=== PATIENT | male | born 1955 ===

== ENCOUNTER 2019-01-23 10:38 | Inpatient (IN) | payer BC, OTHER, SELFPAY ==
[2019-01-23] MEDS ORDERED: Sodium Chloride 0.9% 1,000 ML IV ONE (10:41)
[2019-01-23] MEDS ORDERED: Ondansetron 4 MG/2 ML SDV IVPUSH ONE (10:41)
--- NOTE | 2019-01-23 10:45 | EDM.PDOC ---
ED HPI GENERAL MEDICAL PROBLEM - General Chief Complaint: General Stated Complaint: PT FELL AT HOME Time Seen by Provider: 01/23/19 10:39 Source of Information: Reports: Patient History Limitations: Reports: No Limitations - History of Present Illness INITIAL COMMENTS - FREE TEXT/NARRATIVE: HISTORY AND PHYSICAL: History of present illness: Patient is a 63-year-old male who presents to the emergency room after a fall at home. He states that he woke up this morning and had a sudden urge to have a bowel movement. He was ambulating with his walker when he fell to the ground. He states she does have generalized weakness and usually stays in bed (due to cancer diagnosis). He states he got into a hurry to get to the toilet so he " did not make a mess". He denies hitting his head or having any loss of consciousness. He denies any pain to his distal extremities, trunk or pelvis. Was not continent of urine or stool. When asked why he is here at the emergency room he states that he generally feels unwell and is nauseated. He appears anxious and states that both his oncologist and Dr Rosario are out of town. "Dr Rosario usually fixes me right up". 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 He has been prescribed oral medications for this but his oncologist is out of town for the week and Review of systems: As per history of present illness and below otherwise all systems reviewed and negative. Past medical history: As per history of present illness and as reviewed below otherwise noncontributory. Surgical history: As per history of present illness and as reviewed below otherwise noncontributory. Social history: See social history for further information Family history: As per history of present illness and as reviewed below otherwise noncontributory. Physical exam: General: Well-developed and well-nourished 63-year-old male. Alert and oriented. Nontoxic appearing and in no acute distress. Patient does appear emotional as he is talking about his current diagnoses along with some home stressors that have recently arise. HEENT: Atraumatic, normocephalic, pupils equal and reactive bilaterally, negative for conjunctival pallor or scleral icterus, mucous membranes moist, TMs normal bilaterally, throat clear, neck supple, nontender, trachea midline. No drooling or trismus noted. No meningeal signs. No hot potato voice noted. Lungs: Clear to auscultation, breath sounds equal bilaterally, chest nontender. Heart: S1S2, regular rate and rhythm without overt murmur Abdomen: Soft, nondistended, nontender. Negative for masses or hepatosplenomegaly. Negative for costovertebral tenderness. Pelvis is stable and nontender. Skin: Intact, warm, dry. No lesions or rashes noted. Extremities: Atraumatic, moves all extremities per self without difficulty or deficits, negative for cords or calf pain. Neurovascular unremarkable. Neuro: Awake, alert, oriented. Cranial nerves II through XII unremarkable. Cerebellum unremarkable. Motor and sensory unremarkable throughout. Exam nonfocal. Notes: I'm unable to find any recent physician notes discussing this patient's care. He did have an MRI of the brain on 12/17/18. The MRI shows radiographic worsening of patchy foci of T2 prolongation involving the sylvia, superior cerebellar peduncles and middle cerebellar peduncles, right and left posteriolateral medulla, and right cerebral peduncle. Lack of significant response to corticosteroids argues against CLIPPERS. Today's EKG shows a sinus rhythm with RBBB with rate of 85. No recent EKG's for comparison. Lab work shows no acute findings. Chest x-ray and head CT showed no acute findings as well. Patient is not a good historian. We did discuss admission versus discharge to home. He states that his recently had left him and he is taking care of himself. He does not feel safe going home as he is afraid he is given a fall again. Does mention that his had set up possible home care for Friday, although he is uncertain if they were going to come to his house or if they were just talking about setting up home care. Patient's vital signs remained stable. Dr. Flower was consulted on this case and is agreeable to keeping him for observation. Diagnostics: CBC, CMP, INR, Head CT, CXR Therapeutics: IV fluids, Zofran Prescription: None Impression: Frequent Falls Generalized Weakness History of cancer Plan: Observation admission to [facility] Definitive disposition and diagnosis as appropriate pending reevaluation and review of above. - Related Data Allergies Allergy/AdvReac Type Severity Reaction Status Date / Time No Known Allergies Allergy Verified 01/23/19 10:41 Home Meds: Home Meds Lisinopril 2.5 mg PO DAILY 01/23/19 [History] Metoprolol Tartrate 25 mg PO BID 01/23/19 [History] Naltrexone HCl [Revia] 10 mg PO DAILY 01/23/19 [History] Nitroglycerin 0.4 mg PO ASDIRECTED PRN 01/23/19 [History] Omeprazole 20 mg PO ACBREAKFAST 01/23/19 [History] Sertraline HCl 50 mg PO DAILY 01/23/19 [History] Warfarin [Coumadin] 4 mg PO DAILY 01/23/19 [History] atorvaSTATin [Lipitor] 20 mg PO BEDTIME 01/23/19 [History] carBAMazepine [Carbamazepine] 200 mg PO BID 01/23/19 [History] predniSONE [Prednisone] 30 mg PO DAILY 01/23/19 [History] Past Medical History - Past Health History Medical/Surgical History: Denies Medical/Surgical History ED ROS GENERAL - Review of Systems Review Of Systems: ROS reveals no pertinent complaints other than HPI. ED EXAM, GENERAL - Physical Exam Exam: See Below (See dictation) Course - Vital Signs Last Recorded V/S: Last Vital Signs Temp 98.2 F 01/23/19 10:41 Pulse 87 01/23/19 11:22 Resp 18 01/23/19 11:22 BP 154/90 H 01/23/19 11:22 Pulse Ox 98 01/23/19 11:22 - Orders/Labs/Meds Orders: Active Orders 24 hr Category Date Time Status Admission Status [Patient Status] [ADT] Stat ADT 01/23/19 12:15 Ordered EKG Documentation Completion [RC] STAT Care 01/23/19 10:40 Active Sodium Chloride 0.9% [Normal Saline] 1,000 ml Med 01/23/19 10:41 Active IV STAT Medication Orders Sodium Chloride (Normal Saline) 1,000 mls @ 100 mls/hr IV STAT ONE Stop: 01/23/19 20:40 Last Admin: 01/23/19 11:24 Dose: 100 mls/hr Labs: Laboratory Tests 01/23/19 01/23/19 01/23/19 Range/Units 11:21 11:21 11:21 WBC 8.20 (4.0-11.0) K/uL RBC 6.11 H (4.50-5.90) M/uL Hgb 15.9 (13.0-17.0) g/dL Hct 46.4 (38.0-50.0) % MCV 75.9 L (80.0-98.0) fL MCH 26.0 L (27.0-32.0) pg MCHC 34.3 (31.0-37.0) g/dL RDW Std Deviation 41.5 (28.0-62.0) fl RDW Coeff of Vicki 15 (11.0-15.0) % Plt Count 168 (150-400) K/uL MPV 9.00 (7.40-12.00) fL Add Manual Diff YES Neutrophils % (Manual) 65 (48.0-80.0) % Lymphocytes % (Manual) 17 (16.0-40.0) % Monocytes % (Manual) 16 H (0.0-15.0) % Eosinophils % (Manual) 1 (0.0-7.0) % Basophils % (Manual) 1 (0.0-1.5) % Nucleated RBC % 0.0 /100WBC Absolute Seg Neuts 5.3 (1.4-5.7) Lymphocytes # (Manual) 1.4 (0.6-2.4) Monocytes # (Manual) 1.3 H (0.0-0.8) Eosinophils # (Manual) 0.1 (0.0-0.7) Basophils # (Manual) 0.1 (0.0-0.1) Nucleated RBCs # 0 K/uL INR 1.16 Sodium 142 (136-148) mmol/L Potassium 3.3 L (3.5-5.1) mmol/L Chloride 109 H (98-107) mmol/L Carbon Dioxide 21.6 (21.0-32.0) mmol/L BUN 5 L (7.0-18.0) mg/dL Creatinine 1.0 (0.8-1.3) mg/dL Est Cr Clr Drug Dosing 80.10 mL/min Estimated GFR (MDRD) > 60.0 ml/min Glucose 111 H (74-106) mg/dL Calcium 8.1 L (8.5-10.1) mg/dL Total Bilirubin 1.4 H (0.2-1.0) mg/dL AST 20 (15-37) IU/L ALT 21 (14-63) IU/L Alkaline Phosphatase 142 H (46-116) U/L Total Protein 5.6 L (6.4-8.2) g/dL Albumin 2.5 L (3.4-5.0) g/dL Globulin 3.1 (2.6-4.0) g/dL Albumin/Globulin Ratio 0.8 L (0.9-1.6) Meds: Medications Generic Name Dose Route Start Last Admin Trade Name Freq PRN Reason Stop Dose Admin Sodium Chloride 1,000 mls @ 100 mls/hr 01/23/19 10:41 01/23/19 11:24 Normal Saline IV 01/23/19 20:40 100 mls/hr STAT ONE Administration Discontinued Medications Generic Name Dose Route Start Last Admin Trade Name Freq PRN Reason Stop Dose Admin Ondansetron HCl 4 mg 01/23/19 10:41 01/23/19 11:24 Zofran IVPUSH 01/23/19 10:42 4 mg ONETIME ONE Administration Departure - Departure Time of Disposition: 12:18 Disposition: Refer to Observation Clinical Impression: Frequent falls, History of cancer, Generalized weakness - Discharge Information Referrals: PCP,None [Primary Care Provider] - Forms: ED Department Discharge - My Orders Last 24 Hours: My Active Orders 01/23/19 10:40 EKG Documentation Completion [RC] STAT 01/23/19 10:41 Sodium Chloride 0.9% [Normal Saline] 1,000 ml IV STAT 01/23/19 12:15 Admission Status [Patient Status] [ADT] Stat - Assessment/Plan Last 24 Hours: My Active Orders 01/23/19 10:40 EKG Documentation Completion [RC] STAT 01/23/19 10:41 Sodium Chloride 0.9% [Normal Saline] 1,000 ml IV STAT 01/23/19 12:15 Admission Status [Patient Status] [ADT] Stat
[2019-01-23 11:47] LABS: BLOOD UREA NITROGEN,BUN 5 mg/dL (7.0-18.0); CARBON DIOXIDE,CO2 21.6 mmol/L (21.0-32.0); CHLORIDE,CL 109 mmol/L (98-107); GLUCOSE RANDOM 111 mg/dL (74-106); POTASSIUM,K 3.3 mmol/L (3.5-5.1); SODIUM,NA 142 mmol/L (136-148)
--- NOTE | 2019-01-23 11:53 | CT ---
INDICATION: Fall COMPARISON: none TECHNIQUE: A CT volumetric acquisition was performed of the brain without IV contrast. Please note that all CT scans at this facility use dose modulation, iterative reconstruction, and/or weight-based dosing when appropriate to reduce radiation dose to as low as reasonably achievable. FINDINGS: No intracranial hemorrhage, mass or mass effect. No midline shift or hydrocephalus. No extra-axial fluid collection. No fracture. Mucoperiosteal thickening within the left maxillary sinus. IMPRESSION: No acute intracranial pathology. Please note that all CT scans at this facility use dose modulation, iterative reconstruction, and/or weight-based dosing when appropriate to reduce radiation dose to as low as reasonably achievable. Dictated by Eliel Dobbs MD @ Jan 23 2019 11:49AM Signed by Dr. Eliel Dobbs @ Jan 23 2019 11:51AM
--- NOTE | 2019-01-23 12:00 | CR ---
INDICATION: FALL COMPARISON: 06/15/2018. FINDINGS: Single portable AP view of the chest demonstrates adequate inflation of the lungs. No focal airspace consolidation, pneumothorax or effusion. Cardiomediastinal silhouette is unremarkable for an AP view. Postsurgical changes from median sternotomy. No acute osseous findings identified. IMPRESSION: Negative AP view of the chest. No acute findings identified. Dictated by Shant Cook MD @ 01/23/2019 11:58:48 AM Dictated by: Shant Cook MD @ 01/23/2019 11:59:02 (Electronically Signed)
[2019-01-23] MEDS ORDERED: Sodium Chloride 0.9% 1,000 ML IV SCH (13:45)
--- NOTE | 2019-01-23 15:22 | PCM.HP ---
H&P History of Present Illness - General Date of Service: 01/23/19 Admit Problem/Dx: Admission Diagnosis/Problem Admission Diagnosis/Problem Weakness Source of Information: Patient, Old Records History Limitations: Reports: No Limitations - History of Present Illness Initial Comments - Free Text/Narative: The patient is a 63-year-old gentleman who presented to the emergency department the evening of weakness, dizziness and lightheadedness and gait instability. The patient reports that he has had the symptoms since at least March 2018. Further, the patient says that he has been recently treated in [facility] for "blood cancer that inflames my brain" although records are currently not available. The patient says that he is also been falling at home and did so today. He doesn't recall injuring himself. The patient also said that his and children have left him and he has been unemployed since March. The patient says that he is also frustrated that he was supposed to have medications sent to him and this has not happened yet. The patient also has expressed despondency with suicidal ideation at his current situation. There was no plan expressed at this time. Also, the patient is somewhat of a poor historian with regards to his health. Onset of Symptoms: Reports: Gradual Duration of Symptoms: Reports: Chronic Location: Reports: Generalized Severity: Moderate Improves with: Reports: None Worsens with: Reports: None Associated Symptoms: Reports: Confusion - Related Data Allergies/Adverse Reactions: Allergies Allergy/AdvReac Type Severity Reaction Status Date / Time No Known Allergies Allergy Verified 01/23/19 16:10 Home Medications: Home Meds Lisinopril 2.5 mg PO DAILY 01/23/19 [History] Metoprolol Tartrate 25 mg PO BID 01/23/19 [History] Naltrexone HCl [Revia] 10 mg PO DAILY 01/23/19 [History] Nitroglycerin 0.4 mg PO ASDIRECTED PRN 01/23/19 [History] Omeprazole 20 mg PO ACBREAKFAST 01/23/19 [History] Sertraline HCl 50 mg PO DAILY 01/23/19 [History] Warfarin [Coumadin] 4 mg PO DAILY 01/23/19 [History] atorvaSTATin [Lipitor] 20 mg PO BEDTIME 01/23/19 [History] carBAMazepine [Carbamazepine] 200 mg PO BID 01/23/19 [History] predniSONE [Prednisone] 30 mg PO DAILY 01/23/19 [History] Past Medical History - Past Health History Medical/Surgical History: Denies Medical/Surgical History HEENT History: Reports: Hard of Hearing Cardiovascular History: Reports: IA Respiratory History: Reports: None Gastrointestinal History: Reports: None Genitourinary History: Reports: None Musculoskeletal History: Reports: Other (See Below) Other Musculoskeletal History: "broken hip" Neurological History: Reports: Other (See Below) Psychiatric History: Reports: Suicidal Ideation Endocrine/Metabolic History: Reports: None Hematologic History: Reports: Other (See Below) Other Hematologic History: "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" Immunologic History: Reports: None Other Oncologic History: 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." Dermatologic History: Reports: None - Infectious Disease History Infectious Disease History: Reports: Chicken Pox, Measles, Mumps - Past Surgical History Other Musculoskeletal Surgeries/Procedures:: "put three screws in hip" Social & Family History - Family History Family Medical History: Noncontributory - Tobacco Use Smoking Status *Q: Former Smoker Used Tobacco, but Quit: Yes Month/Year Tobacco Last Used: 06/2014 - Caffeine Use Caffeine Use: Reports: Coffee, Soda - Alcohol Use Alcohol Use History: No - Recreational Drug Use Recreational Drug Use: Yes Drug Use in Last 12 Months: Yes Recreational Drug Type: Reports: Marijuana/Hashish Recreational Drug Use Frequency: Rarely - Living Situation & Occupation Living situation: Reports: , Alone Occupation: Unemployed H&P Review of Systems - Review of Systems: Review Of Systems: See Below General: Reports: Malaise, Weakness, Decreased Appetite, Weight Loss HEENT: Reports: Hearing Changes, Visual Changes Pulmonary: Reports: No Symptoms Cardiovascular: Reports: No Symptoms Gastrointestinal: Reports: No Symptoms Genitourinary: Reports: No Symptoms Musculoskeletal: Reports: No Symptoms Skin: Reports: No Symptoms Psychiatric: Reports: Depression, Mood Lability, Suicidal Ideation Neurological: Reports: No Symptoms Hematologic/Lymphatic: Reports: No Symptoms Immunologic: Reports: No Symptoms Exam - Exam Exam: See Below - Vital Signs Vital Signs: Last Vital Signs Temp 36.1 C 01/23/19 13:30 Pulse 71 01/23/19 13:30 Resp 18 01/23/19 13:30 BP 147/70 H 01/23/19 13:30 Pulse Ox 97 01/23/19 13:30 Weight: 91 kg - Exam Quality Assessment: No: Supplemental Oxygen General: Alert, Oriented, Cooperative, Mild Distress HEENT: Conjunctiva Clear, EACs Clear, EOMI, Mucosa Moist & Welch, Pupils Equal, PERRLA Neck: Supple, Trachea Midline Lungs: Clear to Auscultation, Normal Respiratory Effort Cardiovascular: Regular Rate, Regular Rhythm GI/Abdominal Exam: Normal Bowel Sounds, Soft, No Distention Back Exam: Normal Inspection, Full Range of Motion Extremities: Normal Inspection, No Pedal Edema Neurological: Cranial Nerves Intact, Strength Equal Bilateral (Decreased). No: Normal Gait Psychiatric: Alert, Labile Mood, Depressed, Suicidal Ideation - Patient Data Lab Results Last 24 hrs: Laboratory Results - last 24 hr 01/23/19 01/23/19 01/23/19 Range/Units 11:21 11:21 11:21 WBC 8.20 (4.0-11.0) K/uL RBC 6.11 H (4.50-5.90) M/uL Hgb 15.9 (13.0-17.0) g/dL Hct 46.4 (38.0-50.0) % MCV 75.9 L (80.0-98.0) fL MCH 26.0 L (27.0-32.0) pg MCHC 34.3 (31.0-37.0) g/dL RDW Std Deviation 41.5 (28.0-62.0) fl RDW Coeff of Vicki 15 (11.0-15.0) % Plt Count 168 (150-400) K/uL MPV 9.00 (7.40-12.00) fL Add Manual Diff YES Neutrophils % (Manual) 65 (48.0-80.0) % Lymphocytes % (Manual) 17 (16.0-40.0) % Monocytes % (Manual) 16 H (0.0-15.0) % Eosinophils % (Manual) 1 (0.0-7.0) % Basophils % (Manual) 1 (0.0-1.5) % Nucleated RBC % 0.0 /100WBC Absolute Seg Neuts 5.3 (1.4-5.7) Lymphocytes # (Manual) 1.4 (0.6-2.4) Monocytes # (Manual) 1.3 H (0.0-0.8) Eosinophils # (Manual) 0.1 (0.0-0.7) Basophils # (Manual) 0.1 (0.0-0.1) Nucleated RBCs # 0 K/uL INR 1.16 Sodium 142 (136-148) mmol/L Potassium 3.3 L (3.5-5.1) mmol/L Chloride 109 H (98-107) mmol/L Carbon Dioxide 21.6 (21.0-32.0) mmol/L BUN 5 L (7.0-18.0) mg/dL Creatinine 1.0 (0.8-1.3) mg/dL Est Cr Clr Drug Dosing 80.10 mL/min Estimated GFR (MDRD) > 60.0 ml/min Glucose 111 H (74-106) mg/dL Calcium 8.1 L (8.5-10.1) mg/dL Total Bilirubin 1.4 H (0.2-1.0) mg/dL AST 20 (15-37) IU/L ALT 21 (14-63) IU/L Alkaline Phosphatase 142 H (46-116) U/L Total Protein 5.6 L (6.4-8.2) g/dL Albumin 2.5 L (3.4-5.0) g/dL Globulin 3.1 (2.6-4.0) g/dL Albumin/Globulin Ratio 0.8 L (0.9-1.6) Result Diagrams: 01/23/19 11:21 01/23/19 11:21 - Problem List (1) Encephalopathy SNOMED Code(s): 03531306 ICD Code: G93.40 - ENCEPHALOPATHY, UNSPECIFIED Status: Chronic Priority: High Current Visit: Yes (2) Suicidal ideation SNOMED Code(s): 7226024 ICD Code: R45.851 - SUICIDAL IDEATIONS Status: Acute Priority: High Current Visit: Yes (3) Emotional lability SNOMED Code(s): 03797861 ICD Code: R45.86 - EMOTIONAL LABILITY Status: Chronic Priority: High Current Visit: Yes (4) Gait disturbance SNOMED Code(s): 29502430 ICD Code: R26.9 - UNSPECIFIED ABNORMALITIES OF GAIT AND MOBILITY Status: Chronic Priority: High Current Visit: Yes (5) Frequent falls SNOMED Code(s): 149838680 ICD Code: R29.6 - REPEATED FALLS Status: Chronic Priority: High Current Visit: Yes (6) History of cancer SNOMED Code(s): 665776646 ICD Code: Z85.9 - PERSONAL HISTORY OF MALIGNANT NEOPLASM, UNSPECIFIED Status: Chronic Priority: Medium Current Visit: Yes Problem List Initiated/Reviewed/Updated: Yes Orders Last 24hrs: Active Orders 24 hr Category Date Time Status Admission Status [Patient Status] [ADT] Stat ADT 01/23/19 12:15 Active EKG Documentation Completion [RC] STAT Care 01/23/19 10:40 Active Regular Diet [DIET] Diet 01/23/19 Lunch Active Sodium Chloride 0.9% [Normal Saline] 1,000 ml Med 01/23/19 13:45 Active IV ASDIRECTED Sodium Chloride 0.9% [Normal Saline] 1,000 ml Med 01/23/19 10:41 Active IV STAT Medication Orders Sodium Chloride (Normal Saline) 1,000 mls @ 100 mls/hr IV STAT ONE Stop: 01/23/19 20:40 Last Admin: 01/23/19 11:24 Dose: 100 mls/hr Sodium Chloride (Normal Saline) 1,000 mls @ 75 mls/hr IV ASDIRECTED JUAN Last Admin: 01/23/19 14:07 Dose: 75 mls/hr Assessment/Plan Comment:: The patient is a 63-year-old gentleman who had presented to the emergency department primarily out of concern for falling. 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 Medical records have been requested from [facility] in order to help provide this patient with appropriate treatment. The patient has been taking warfarin and I've ordered repeated INR is. I've also ordered other laboratory studies. I'm concerned that the patient has had mood lability and this is similar pseudobulbar affect. The patient also had expressed suicidal ideation secondary to his current health situation as well as his family situation. I've requested consult with psychiatrist with regards to this. The patient will be kept on a regular diet as tolerated. I placed the patient on Ativan for agitation. The patient is on warfarin and therefore pharmacological prophylaxis will not be needed and he is a fall risk so I have ordered anti- embolic stockings for him. The patient's home medication has been continued.
[2019-01-23] MEDS ORDERED: oxyCODONE 5 MG Tab PO PRN (16:04)
[2019-01-23] MEDS ORDERED: Acetaminophen 325 MG Tab PO PRN (16:04)
[2019-01-23] MEDS ORDERED: Temazepam 15 MG Cap PO PRN (16:04)
[2019-01-23] MEDS: Sodium Chloride 0.9% 1,000 ML IV SCH (19:15)
[2019-01-23] MEDS: Metoprolol Tartrate 25 MG Tab PO SCH (20:33)
[2019-01-23] MEDS: carBAMazepine 200 MG Tab PO SCH (20:33)
[2019-01-23] MEDS: atorvaSTATin 20 MG Tab PO SCH (20:34)
[2019-01-23] MEDS: LORazepam 1 MG Tab PO PRN (20:45)
[2019-01-24] MEDS: Sodium Chloride 0.9% 1,000 ML IV SCH (03:53)
[2019-01-24 07:10] LABS: BLOOD UREA NITROGEN,BUN 6 mg/dL (7.0-18.0); CHLORIDE,CL 112 mmol/L (98-107); GLUCOSE RANDOM 96 mg/dL (74-106); POTASSIUM,K 3.1 mmol/L (3.5-5.1); SODIUM,NA 143 mmol/L (136-148)
[2019-01-24] MEDS ORDERED: Omeprazole 20 MG Cap.CR PO SCH (07:30)
[2019-01-24] MEDS: Metoprolol Tartrate 25 MG Tab PO SCH ×2 (08:05→20:13)
[2019-01-24] MEDS: Sertraline 50 MG Tab PO SCH (08:06)
[2019-01-24] MEDS: carBAMazepine 200 MG Tab PO SCH ×2 (08:06→20:13)
[2019-01-24] MEDS: Lisinopril 5 MG Tab PO SCH (08:07)
[2019-01-24] MEDS ORDERED: NALTREXONE HCL PO SCH (09:00)
--- NOTE | 2019-01-24 11:28 | PCM.DCSUM1 ---
Discharge Summary - Discharge Data Condition: Stable - Discharge Diagnosis/Problem(s) (1) Encephalopathy SNOMED Code(s): 89220635 ICD Code: G93.40 - ENCEPHALOPATHY, UNSPECIFIED Status: Chronic Priority: High Current Visit: Yes (2) Suicidal ideation SNOMED Code(s): 9105576 ICD Code: R45.851 - SUICIDAL IDEATIONS Status: Acute Priority: High Current Visit: Yes (3) Emotional lability SNOMED Code(s): 46137726 ICD Code: R45.86 - EMOTIONAL LABILITY Status: Chronic Priority: High Current Visit: Yes (4) Gait disturbance SNOMED Code(s): 37980451 ICD Code: R26.9 - UNSPECIFIED ABNORMALITIES OF GAIT AND MOBILITY Status: Chronic Priority: High Current Visit: Yes (5) Frequent falls SNOMED Code(s): 772614833 ICD Code: R29.6 - REPEATED FALLS Status: Chronic Priority: High Current Visit: Yes (6) History of cancer SNOMED Code(s): 973510202 ICD Code: Z85.9 - PERSONAL HISTORY OF MALIGNANT NEOPLASM, UNSPECIFIED Status: Chronic Priority: Medium Current Visit: Yes - Patient Summary/Data Consults: Consultations 01/23/19 16:04 Consult to Physician [CONS] Routine OT Evaluation and Treatment [CONS] Routine PT Evaluation and Treatment [CONS] Routine - Discharge Plan Home Medications: Home Meds Lisinopril 2.5 mg PO DAILY 01/23/19 [History] Metoprolol Tartrate 25 mg PO BID 01/23/19 [History] Nitroglycerin 0.4 mg PO ASDIRECTED PRN 01/23/19 [History] Sertraline HCl 50 mg PO DAILY 01/23/19 [History] Warfarin [Coumadin] 8 mg PO MOWEFR@209901/23/19 [History] atorvaSTATin [Lipitor] 20 mg PO BEDTIME 01/23/19 [History] carBAMazepine [Carbamazepine] 200 mg PO BID 01/23/19 [History] Aspirin [Halfprin] 81 mg PO DAILY 01/24/19 [History] Omeprazole 20 mg PO DAILY 01/24/19 [History] Warfarin [Coumadin] 6 mg PO SUTUTHSA@209901/24/19 [History] predniSONE [Prednisone] 50 mg PO DAILY 01/24/19 [History] Referrals: Db Rosario MD [Physician] - - Patient Data Vitals - Most Recent: Last Vital Signs Temp 36.1 C 01/24/19 07:59 Pulse 88 01/24/19 08:05 Resp 18 01/24/19 07:59 BP 134/79 01/24/19 08:07 Pulse Ox 100 01/24/19 07:59 Weight - Most Recent: 91 kg I&O - Last 24 hours: Intake & Output 01/23/19 01/24/19 01/24/19 22:59 06:59 14:59 Intake Total 600 2474 200 Balance 600 2474 200 Lab Results - Last 24 hrs: Laboratory Results - last 24 hr 01/23/19 01/23/19 01/23/19 Range/Units 11:21 11:21 11:21 WBC 8.20 (4.0-11.0) K/uL RBC 6.11 H (4.50-5.90) M/uL Hgb 15.9 (13.0-17.0) g/dL Hct 46.4 (38.0-50.0) % MCV 75.9 L (80.0-98.0) fL MCH 26.0 L (27.0-32.0) pg MCHC 34.3 (31.0-37.0) g/dL RDW Std Deviation 41.5 (28.0-62.0) fl RDW Coeff of Vicki 15 (11.0-15.0) % Plt Count 168 (150-400) K/uL MPV 9.00 (7.40-12.00) fL Add Manual Diff YES Neutrophils % (Manual) 65 (48.0-80.0) % Band Neutrophils % % Lymphocytes % (Manual) 17 (16.0-40.0) % Monocytes % (Manual) 16 H (0.0-15.0) % Eosinophils % (Manual) 1 (0.0-7.0) % Basophils % (Manual) 1 (0.0-1.5) % Nucleated RBC % 0.0 /100WBC Absolute Seg Neuts 5.3 (1.4-5.7) Band Neutrophils # Lymphocytes # (Manual) 1.4 (0.6-2.4) Monocytes # (Manual) 1.3 H (0.0-0.8) Eosinophils # (Manual) 0.1 (0.0-0.7) Basophils # (Manual) 0.1 (0.0-0.1) Nucleated RBCs # 0 K/uL INR 1.16 Sodium 142 (136-148) mmol/L Potassium 3.3 L (3.5-5.1) mmol/L Chloride 109 H (98-107) mmol/L Carbon Dioxide 21.6 (21.0-32.0) mmol/L BUN 5 L (7.0-18.0) mg/dL Creatinine 1.0 (0.8-1.3) mg/dL Est Cr Clr Drug Dosing 80.10 mL/min Estimated GFR (MDRD) > 60.0 ml/min Glucose 111 H (74-106) mg/dL Calcium 8.1 L (8.5-10.1) mg/dL Total Bilirubin 1.4 H (0.2-1.0) mg/dL AST 20 (15-37) IU/L ALT 21 (14-63) IU/L Alkaline Phosphatase 142 H (46-116) U/L Total Protein 5.6 L (6.4-8.2) g/dL Albumin 2.5 L (3.4-5.0) g/dL Globulin 3.1 (2.6-4.0) g/dL Albumin/Globulin Ratio 0.8 L (0.9-1.6) 01/24/19 01/24/19 01/24/19 Range/Units 06:38 06:38 06:38 WBC 7.59 (4.0-11.0) K/uL RBC 5.27 (4.50-5.90) M/uL Hgb 13.7 (13.0-17.0) g/dL Hct 39.9 (38.0-50.0) % MCV 75.7 L (80.0-98.0) fL MCH 26.0 L (27.0-32.0) pg MCHC 34.3 (31.0-37.0) g/dL RDW Std Deviation 41.5 (28.0-62.0) fl RDW Coeff of Vicki 15 (11.0-15.0) % Plt Count 146 L (150-400) K/uL MPV 8.90 (7.40-12.00) fL Add Manual Diff YES Neutrophils % (Manual) 54 (48.0-80.0) % Band Neutrophils % 3 % Lymphocytes % (Manual) 26 (16.0-40.0) % Monocytes % (Manual) 14 (0.0-15.0) % Eosinophils % (Manual) 2 (0.0-7.0) % Basophils % (Manual) 1 (0.0-1.5) % Nucleated RBC % 0.0 /100WBC Absolute Seg Neuts 4.1 (1.4-5.7) Band Neutrophils # 0.2 Lymphocytes # (Manual) 2.0 (0.6-2.4) Monocytes # (Manual) 1.1 H (0.0-0.8) Eosinophils # (Manual) 0.2 (0.0-0.7) Basophils # (Manual) 0.1 (0.0-0.1) Nucleated RBCs # 0 K/uL INR 1.25 Sodium 143 (136-148) mmol/L Potassium 3.1 L (3.5-5.1) mmol/L Chloride 112 H (98-107) mmol/L Carbon Dioxide 20.0 L (21.0-32.0) mmol/L BUN 6 L (7.0-18.0) mg/dL Creatinine 0.9 (0.8-1.3) mg/dL Est Cr Clr Drug Dosing 89.00 mL/min Estimated GFR (MDRD) > 60.0 ml/min Glucose 96 (74-106) mg/dL Calcium 7.3 L (8.5-10.1) mg/dL Total Bilirubin 1.1 H (0.2-1.0) mg/dL AST 16 (15-37) IU/L ALT 15 (14-63) IU/L Alkaline Phosphatase 110 (46-116) U/L Total Protein 4.3 L (6.4-8.2) g/dL Albumin 2.0 L (3.4-5.0) g/dL Globulin 2.3 L (2.6-4.0) g/dL Albumin/Globulin Ratio 0.9 (0.9-1.6) SWETHA Results - Last 24 hrs: Microbiology 01/24/19 08:00 Clostridium difficile Toxin A & B - Final Stool / Feces Negative for C.Diff Toxin/AG REFERENCE RANGE: NEGATIVE 01/24/19 08:00 Stool for WBCs - Final Stool / Feces NEGATIVE FOR WBC'S 01/24/19 08:00 Campylobacter Antigen Assay - Final Stool / Feces NEGATIVE CAMPYLOBACTER AG REFERENCE RANGE: NEGATIVE Med Orders - Current: Current Medications Acetaminophen (Tylenol) 650 mg PO Q4H PRN PRN Reason: Pain (Mild 1-3)/fever Atorvastatin Calcium (Lipitor) 20 mg PO BEDTIME [facility] Last Admin: 01/23/19 20:34 Dose: 20 mg Carbamazepine (Tegretol Tab) 200 mg PO BID [facility] Last Admin: 01/24/19 08:06 Dose: 200 mg Sodium Chloride (Normal Saline) 1,000 mls @ 100 mls/hr IV ASDIRECTED [facility] Last Admin: 01/24/19 03:53 Dose: 100 mls/hr Lisinopril (Prinivil) 2.5 mg PO DAILY [facility] Last Admin: 01/24/19 08:07 Dose: 2.5 mg Lorazepam (Ativan) 1 mg PO Q6H PRN PRN Reason: Agitation Last Admin: 01/23/19 20:45 Dose: 1 mg Metoprolol Tartrate (Lopressor) 25 mg PO BID [facility] Last Admin: 01/24/19 08:05 Dose: 25 mg Oxycodone HCl (Oxycodone) 5 mg PO Q4H PRN PRN Reason: Pain (moderate 4-6) Sertraline HCl (Zoloft) 50 mg PO DAILY [facility] Last Admin: 01/24/19 08:06 Dose: 50 mg Temazepam (Restoril) 15 mg PO BEDTIME PRN PRN Reason: Sleep Warfarin Sodium (Coumadin) 4 mg PO DAILY@1400 [facility] Discontinued Medications Sodium Chloride (Normal Saline) 1,000 mls @ 100 mls/hr IV STAT ONE Stop: 01/23/19 20:40 Last Admin: 01/23/19 11:24 Dose: 100 mls/hr Sodium Chloride (Normal Saline) 1,000 mls @ 75 mls/hr IV ASDIRECTED [facility] Last Infusion: 01/23/19 16:32 Dose: 100 mls/hr Non-Formulary Medication (Naltrexone Hcl) 10 mg PO DAILY [facility] Omeprazole (Omeprazole) 20 mg PO ACBREAKFAST [facility] Ondansetron HCl (Zofran) 4 mg IVPUSH ONETIME ONE Stop: 01/23/19 10:42 Last Admin: 01/23/19 11:24 Dose: 4 mg *Q Meaningful Use (DIS) - VTE *Q VTE Mechanical Contraindications *Q: At Risk for Falls VTE Pharmacological Contraindications *Q: Risk of Bleeding
[2019-01-24] MEDS ORDERED: Warfarin 2 MG Tab PO SCH (14:00)
[2019-01-24] MEDS ORDERED: LORazepam 1 MG Tab PO ONE (14:27)
--- NOTE | 2019-01-24 14:27 | PCM.PN ---
- General Info Date of Service: 01/24/19 Admission Dx/Problem (Free Text): Admission Diagnosis/Problem Admission Diagnosis/Problem Weakness, frequent falls, gait disturbance, suicidal ideation Subjective Update: The patient is a 63-year-old gentleman who had presented to the emergency department complaining of weakness, dizziness and lightheadedness. The patient was admitted and evaluated. The patient yesterday evening was having episodes of aggressive behavior with nursing staff and had admitted to being suicidal previously. Functional Status: Reports: Pain Controlled - Review of Systems General: Reports: No Symptoms HEENT: Reports: No Symptoms Pulmonary: Reports: No Symptoms Cardiovascular: Reports: No Symptoms Gastrointestinal: Reports: No Symptoms Genitourinary: Reports: No Symptoms Musculoskeletal: Reports: No Symptoms Skin: Reports: No Symptoms Neurological: Reports: Dizziness, Weakness Psychiatric: Reports: Depression, Mood Lability, Suicidal Ideation - Patient Data Vitals - Most Recent: Last Vital Signs Temp 36.2 C 01/24/19 12:00 Pulse 88 01/24/19 12:00 Resp 16 01/24/19 12:00 BP 139/83 01/24/19 12:00 Pulse Ox 99 01/24/19 13:43 Weight - Most Recent: 91 kg I&O - Last 24 Hours: Intake & Output 01/23/19 01/24/19 01/24/19 22:59 06:59 14:59 Intake Total 600 2474 1096 Balance 600 2474 1096 Lab Results Last 24 Hours: Laboratory Results - last 24 hr 01/24/19 01/24/19 01/24/19 Range/Units 06:38 06:38 06:38 WBC 7.59 (4.0-11.0) K/uL RBC 5.27 (4.50-5.90) M/uL Hgb 13.7 (13.0-17.0) g/dL Hct 39.9 (38.0-50.0) % MCV 75.7 L (80.0-98.0) fL MCH 26.0 L (27.0-32.0) pg MCHC 34.3 (31.0-37.0) g/dL RDW Std Deviation 41.5 (28.0-62.0) fl RDW Coeff of Vicki 15 (11.0-15.0) % Plt Count 146 L (150-400) K/uL MPV 8.90 (7.40-12.00) fL Add Manual Diff YES Neutrophils % (Manual) 54 (48.0-80.0) % Band Neutrophils % 3 % Lymphocytes % (Manual) 26 (16.0-40.0) % Monocytes % (Manual) 14 (0.0-15.0) % Eosinophils % (Manual) 2 (0.0-7.0) % Basophils % (Manual) 1 (0.0-1.5) % Nucleated RBC % 0.0 /100WBC Absolute Seg Neuts 4.1 (1.4-5.7) Band Neutrophils # 0.2 Lymphocytes # (Manual) 2.0 (0.6-2.4) Monocytes # (Manual) 1.1 H (0.0-0.8) Eosinophils # (Manual) 0.2 (0.0-0.7) Basophils # (Manual) 0.1 (0.0-0.1) Nucleated RBCs # 0 K/uL INR 1.25 Sodium 143 (136-148) mmol/L Potassium 3.1 L (3.5-5.1) mmol/L Chloride 112 H (98-107) mmol/L Carbon Dioxide 20.0 L (21.0-32.0) mmol/L BUN 6 L (7.0-18.0) mg/dL Creatinine 0.9 (0.8-1.3) mg/dL Est Cr Clr Drug Dosing 89.00 mL/min Estimated GFR (MDRD) > 60.0 ml/min Glucose 96 (74-106) mg/dL Calcium 7.3 L (8.5-10.1) mg/dL Total Bilirubin 1.1 H (0.2-1.0) mg/dL AST 16 (15-37) IU/L ALT 15 (14-63) IU/L Alkaline Phosphatase 110 (46-116) U/L Total Protein 4.3 L (6.4-8.2) g/dL Albumin 2.0 L (3.4-5.0) g/dL Globulin 2.3 L (2.6-4.0) g/dL Albumin/Globulin Ratio 0.9 (0.9-1.6) Urine Opiates Screen (NEGATIVE) Ur Oxycodone Screen (NEGATIVE) Urine Methadone Screen (NEGATIVE) Ur Barbiturates Screen (NEGATIVE) Ur Phencyclidine Scrn (NEGATIVE) Ur Amphetamine Screen (NEGATIVE) U Methamphetamines Scrn (NEGATIVE) U Benzodiazepines Scrn (NEGATIVE) U Cocaine Metab Screen (NEGATIVE) U Marijuana (THC) Screen (NEGATIVE) 01/24/19 Range/Units 12:28 WBC (4.0-11.0) K/uL RBC (4.50-5.90) M/uL Hgb (13.0-17.0) g/dL Hct (38.0-50.0) % MCV (80.0-98.0) fL MCH (27.0-32.0) pg MCHC (31.0-37.0) g/dL RDW Std Deviation (28.0-62.0) fl RDW Coeff of Vicki (11.0-15.0) % Plt Count (150-400) K/uL MPV (7.40-12.00) fL Add Manual Diff Neutrophils % (Manual) (48.0-80.0) % Band Neutrophils % % Lymphocytes % (Manual) (16.0-40.0) % Monocytes % (Manual) (0.0-15.0) % Eosinophils % (Manual) (0.0-7.0) % Basophils % (Manual) (0.0-1.5) % Nucleated RBC % /100WBC Absolute Seg Neuts (1.4-5.7) Band Neutrophils # Lymphocytes # (Manual) (0.6-2.4) Monocytes # (Manual) (0.0-0.8) Eosinophils # (Manual) (0.0-0.7) Basophils # (Manual) (0.0-0.1) Nucleated RBCs # K/uL INR Sodium (136-148) mmol/L Potassium (3.5-5.1) mmol/L Chloride (98-107) mmol/L Carbon Dioxide (21.0-32.0) mmol/L BUN (7.0-18.0) mg/dL Creatinine (0.8-1.3) mg/dL Est Cr Clr Drug Dosing mL/min Estimated GFR (MDRD) ml/min Glucose (74-106) mg/dL Calcium (8.5-10.1) mg/dL Total Bilirubin (0.2-1.0) mg/dL AST (15-37) IU/L ALT (14-63) IU/L Alkaline Phosphatase (46-116) U/L Total Protein (6.4-8.2) g/dL Albumin (3.4-5.0) g/dL Globulin (2.6-4.0) g/dL Albumin/Globulin Ratio (0.9-1.6) Urine Opiates Screen NEGATIVE (NEGATIVE) Ur Oxycodone Screen NEGATIVE (NEGATIVE) Urine Methadone Screen NEGATIVE (NEGATIVE) Ur Barbiturates Screen NEGATIVE (NEGATIVE) Ur Phencyclidine Scrn NEGATIVE (NEGATIVE) Ur Amphetamine Screen NEGATIVE (NEGATIVE) U Methamphetamines Scrn NEGATIVE (NEGATIVE) U Benzodiazepines Scrn NEGATIVE (NEGATIVE) U Cocaine Metab Screen NEGATIVE (NEGATIVE) U Marijuana (THC) Screen POSITIVE (NEGATIVE) [place] Results Last 24 Hours: Microbiology 01/24/19 08:00 Clostridium difficile Toxin A & B - Final Stool / Feces Negative for C.Diff Toxin/AG REFERENCE RANGE: NEGATIVE 01/24/19 08:00 Stool for WBCs - Final Stool / Feces NEGATIVE FOR WBC'S 01/24/19 08:00 Campylobacter Antigen Assay - Final Stool / Feces NEGATIVE CAMPYLOBACTER AG REFERENCE RANGE: NEGATIVE Med Orders - Current: Current Medications Acetaminophen (Tylenol) 650 mg PO Q4H PRN PRN Reason: Pain (Mild 1-3)/fever Atorvastatin Calcium (Lipitor) 20 mg PO BEDTIME [facility] Last Admin: 01/23/19 20:34 Dose: 20 mg Carbamazepine (Tegretol Tab) 200 mg PO BID [facility] Last Admin: 01/24/19 08:06 Dose: 200 mg Lisinopril (Prinivil) 2.5 mg PO DAILY [facility] Last Admin: 01/24/19 08:07 Dose: 2.5 mg Lorazepam (Ativan) 1 mg PO Q6H PRN PRN Reason: Agitation Last Admin: 01/23/19 20:45 Dose: 1 mg Metoprolol Tartrate (Lopressor) 25 mg PO BID [facility] Last Admin: 01/24/19 08:05 Dose: 25 mg Oxycodone HCl (Oxycodone) 5 mg PO Q4H PRN PRN Reason: Pain (moderate 4-6) Sertraline HCl (Zoloft) 50 mg PO DAILY [facility] Last Admin: 01/24/19 08:06 Dose: 50 mg Temazepam (Restoril) 15 mg PO BEDTIME PRN PRN Reason: Sleep Warfarin Sodium (Coumadin) 4 mg PO DAILY@1400 [facility] Last Admin: 01/24/19 12:59 Dose: 4 mg Discontinued Medications Sodium Chloride (Normal Saline) 1,000 mls @ 100 mls/hr IV STAT ONE Stop: 01/23/19 20:40 Last Admin: 01/23/19 11:24 Dose: 100 mls/hr Sodium Chloride (Normal Saline) 1,000 mls @ 75 mls/hr IV ASDIRECTED [facility] Last Infusion: 01/23/19 16:32 Dose: 100 mls/hr Sodium Chloride (Normal Saline) 1,000 mls @ 100 mls/hr IV ASDIRECTED [facility] Last Admin: 01/24/19 03:53 Dose: 100 mls/hr Non-Formulary Medication (Naltrexone Hcl) 10 mg PO DAILY [facility] Omeprazole (Omeprazole) 20 mg PO ACBREAKFAST [facility] Ondansetron HCl (Zofran) 4 mg IVPUSH ONETIME ONE Stop: 01/23/19 10:42 Last Admin: 01/23/19 11:24 Dose: 4 mg - Exam Quality Assessment: No: Supplemental Oxygen General: Alert, Oriented. No: Cooperative HEENT: Pupils Equal, Pupils Reactive, EOMI, Mucous Membr. Moist/[place] Neck: Supple, Trachea Midline Lungs: Clear to Auscultation, Normal Respiratory Effort Cardiovascular: Regular Rate, Regular Rhythm GI/Abdominal Exam: Normal Bowel Sounds, Soft, No Distention Back Exam: Normal Inspection, Full Range of Motion Extremities: Normal Inspection, No Pedal Edema Skin: Warm, Dry, Intact Neurological: No: Strength Equal Bilateral (Decreased bilaterally) Psy/Mental Status: Labile Mood, Depressed, Agitated, Suicidal Ideation - Problem List & Annotations (1) Encephalopathy SNOMED Code(s): 53722509 Code(s): G93.40 - ENCEPHALOPATHY, UNSPECIFIED Status: Chronic Priority: High Current Visit: Yes (2) Suicidal ideation SNOMED Code(s): 7644996 Code(s): R45.851 - SUICIDAL IDEATIONS Status: Acute Priority: High Current Visit: Yes (3) Emotional lability SNOMED Code(s): 78648237 Code(s): R45.86 - EMOTIONAL LABILITY Status: Chronic Priority: High Current Visit: Yes (4) Gait disturbance SNOMED Code(s): 27258833 Code(s): R26.9 - UNSPECIFIED ABNORMALITIES OF GAIT AND MOBILITY Status: Chronic Priority: High Current Visit: Yes (5) Frequent falls SNOMED Code(s): 629453260 Code(s): R29.6 - REPEATED FALLS Status: Chronic Priority: High Current Visit: Yes (6) History of cancer SNOMED Code(s): 673135046 Code(s): Z85.9 - PERSONAL HISTORY OF MALIGNANT NEOPLASM, UNSPECIFIED Status : Chronic Priority: Medium Current Visit: Yes - Problem List Review Problem List Initiated/Reviewed/Updated: Yes - My Orders Last 24 Hours: My Active Orders 01/23/19 16:04 Up With Assistance [RC] ASDIRECTED Consult to Physician [CONS] Routine OT Evaluation and Treatment [CONS] Routine PT Evaluation and Treatment [CONS] Routine Acetaminophen [Tylenol] 650 mg PO Q4H PRN Temazepam [Restoril] 15 mg PO BEDTIME PRN oxyCODONE 5 mg PO Q4H PRN VTE Mechanical Contraindications [AST] Per Unit Routine VTE Pharmacological Contraindications [AST] Per Unit Routine Resuscitation Status Routine 01/23/19 16:05 Oxygen Therapy [RC] PRN VTE/DVT Education [RC] PER UNIT ROUTINE Vital Signs [RC] Q4H 01/23/19 16:06 Antiembolic Devices [RC] PER UNIT ROUTINE Antiembolic Hose [OM.PC] Per Unit Routine 01/23/19 16:09 Notify Provider Consults [RC] ASDIRECTED 01/23/19 16:23 LORazepam [Ativan] 1 mg PO Q6H PRN 01/23/19 21:00 Metoprolol Tartrate [Lopressor] 25 mg PO BID atorvaSTATin [Lipitor] 20 mg PO BEDTIME carBAMazepine [TEGretol Tab] 200 mg PO BID 01/24/19 08:00 CULTURE STOOL + CAMPY+SHIGATOX [RM] Routine 01/24/19 09:00 Lisinopril [Prinivil] 2.5 mg PO DAILY Sertraline [Zoloft] 50 mg PO DAILY 01/24/19 10:45 One To One Therapy [BH] Stat 01/24/19 14:00 Warfarin [Coumadin] 4 mg PO DAILY@1400 01/25/19 05:11 INR,PT,PROTHROMBIN TIME [COAG] DAILY - Plan Plan:: The patient is a 63-year-old gentleman who had presented to the emergency department for falling. The patient also has had suicidal ideation. The patient had opportunity to speak with psychiatrist Dr. Lange via telemedicine. The patient still continues to exhibit suicidal ideation. The patient has been uncooperative and somewhat hostile with the staff. 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 Multiple phone calls to different facilities have indicated that there is no availability for bed services. The patient has had severe mood lability and I'm concerned that the patient has poor impulse control. The patient should have one-to-one setter. I have also ordered 2 mg of Ativan, 5 mg of Haldol and [address] Lange has described the patient as psychologically unstable at this point. The patient's is still a fall risk and he has been on warfarin therefore I've ordered antiembolic stockings. Repeat laboratory studies been ordered.
[2019-01-24] MEDS ORDERED: Haloperidol 5 MG Tab PO ONE (14:28)
[2019-01-24] MEDS ORDERED: diphenhydrAMINE 50 MG Cap PO ONE (14:29)
[2019-01-24] MEDS: atorvaSTATin 20 MG Tab PO SCH (20:13)
[2019-01-25 06:39] LABS: BLOOD UREA NITROGEN,BUN 5 mg/dL (7.0-18.0); CARBON DIOXIDE,CO2 19.5 mmol/L (21.0-32.0); CHLORIDE,CL 111 mmol/L (98-107); GLUCOSE RANDOM 93 mg/dL (74-106); POTASSIUM,K 3.1 mmol/L (3.5-5.1); SODIUM,NA 141 mmol/L (136-148)
--- NOTE | 2019-01-25 07:23 | CONS ---
DATE OF CONSULTATION: DATE OF : 1955 PRIMARY CARE PHYSICIAN: None PCP LOCATION: Site where the services are provided is [facility] in [place], [place]. Site where the services are provided from our office is in [facility]. TIME SPENT: Length of service for this 60-minute inpatient telemedicine event is 60 minutes. IDENTIFICATION: The patient is a 63-year-old male, who was admitted to the Inpatient MedSurg Unit at [facility] in [place], [place]. He is seen for psychiatric evaluation per the request of staff attending, Dr. Flower, and his treatment team. CHIEF COMPLAINT: "It was some disease in my body that affects my brain. I am all screwed up." HISTORY OF PRESENT ILLNESS: The patient is a 63-year-old male, who was admitted to the Inpatient MedSurg Unit at [facility], [place], [place], on January 23, 2019, with the initial concern that he had been falling and losing his balance at home. Once on the unit, the patient disclosed to staff that he was suicidal with a plan to kill himself, but he would not disclose what that plan was. He also, according to staff, was being quite hostile and belligerent in a verbal fashion, and he has been verbally threatening to staff. The staff began to be concerned about the patient's state of mind and his apparent emotional lability and requested psychiatric consultation in this regard. On interview, the patient is also stating that he has weapons at home. He is stating that he is suicidal, but then he is denying that he is suicidal, but then stating he is suicidal. Interview does reveal that the patient has been struggling with depression, and he states "I have lived my whole life with depression." He states that he has been treated for depression, but he denies any suicide attempts previously. He does report that he hears sounds in the form of auditory hallucinations, stating "I think I will hear someone knocking on the door, but there is no one there." The patient states he is getting good sleep, but again is noting that he is "a little bit" depressed at this point in time. Evidently, he is having marital problems with his , who is 17 years his afia and is the mother of his 2 children. He states "I know I was bad to them," but he states he hopes that he can reconcile, but he does state that is part of the reason that he is feeling depressed. The patient is denying that he is homicidal. He is denying any illicit substance use or excessive alcohol use complicating his clinical picture. He is consistent with how our staff described him in terms of being emotionally labile, and his thought processes are quite scattered, and he does find it hard to articulate the points he is trying to make. MEDICATIONS AT THE TIME OF PRESENTATION: 1. Carbamazepine. 2. Sertraline. 3. Lisinopril. 4. Warfarin. 5. Metoprolol. ALLERGIES: No known drug allergies. PAST MEDICAL HISTORY: Hypertension. No other medical conditions are reported. The patient does not elaborate why he is taking the warfarin and whether or not he has any kind of clotting disorder. REVIEW OF SYSTEMS: Aside from cardiovascular and blood, all other major organ systems appear negative at this point in time for acute difficulties or complications per patient report and per staff report. FAMILY PSYCHIATRIC AND CHEMICAL DEPENDENCY HISTORY: None reported. PAST PSYCHIATRIC AND CHEMICAL DEPENDENCY HISTORY: The patient denies any previous psychiatric hospitalizations or chemical dependency treatments. He denies any previous suicide attempts, self-injurious behaviors, or eating disorder history. Primary outpatient care provider is Dr. Cleve alegria of [facility]. PAST PSYCHIATRIC DIAGNOSIS: Includes depression. SOCIAL HISTORY: The patient was born and raised in [place], [place]. He is a building pressure washer by profession. He states he is , but he is likely going through a divorce. He states his is 17 years his afia , and he has 2 biological children by his . He denies any prior service or any current legal difficulties. He states he has no druze. MENTAL STATUS EXAMINATION: The patient is a 63-year-old white male, lying in bed, in no apparent distress. Speech is of rapid rate and rhythm. The patient is cognitively oriented to person and place, but not to date. Psychomotor activities are within normal limits. There are no abnormal motor movements or tics observed. Gait and station are not observed, as the patient is lying in bed during the telemedicine consult. Mood is depressed. Affect is actually manic and quite labile, but overall, the patient is able to be redirected during the course of the interview as needed, but he does have a hard time answering quite a few questions. The patient is denying and then acknowledging that he has suicidal ideation, he will not disclose any plans, and he denies that he has homicidal ideation. The patient is reporting auditory hallucinations in the form of sounds in his ears that other people cannot hear, the sound of knocking in particular on the door and then no one is there. Thought processes are quite disorganized and accelerated. The patient does have some loose associations evident. Judgment and insight do appear impaired at this point in time. Motivation for help is poor. VITAL SIGNS: Vital signs at the time of presentation are stable. IMPRESSION: Brilliant I: 1. Psychosis, not otherwise specified, F29. 2. Rule out bipolar affective disease, manic type versus mixed type, with psychotic features. 3. Reported past history of major depressive disorder, recurrent, F33. Brilliant II: None. Brilliant III: Hypertension. Brilliant IV: Severe. Brilliant V: 50 to 55. PLAN: 1. Recommend placing the patient on one-to-one for safety purposes while he remains on the Inpatient MedSurg Unit at [facility]. 2. Recommend that when the patient is medically stabilized and cleared to be transferred to Inpatient Psychiatry for further psychiatric medication management and psychiatric stabilization and safety as, at the present time, in his current state, he does pose a danger to himself and potentially others. 3. While on the unit, if the patient is becoming uncooperative and tries to leave AMA, may place him on a 72-hour hold if need be. 4. Recommend Haldol 2 to 5 mg q.4 to 6 hours p.r.n. for psychosis or agitation. 5. Recommend Ativan 1 to 2 mg q.4 to 6 hours p.r.n. acute agitation and anxiety. 6. Recommend Benadryl 50 mg q.4 to 6 hours p.r.n. agitation, anxiety, or . 7. We will continue to follow up with the patient on an as-needed basis while the patient remains on the Inpatient MedSurg Unit at [facility] in [place], [place]. 8. We will follow up with the patient sooner if there are any complications in the interim. 9. Would recommend that the [facility] team, if possible, obtain collateral information from the patient's family regarding the circumstances of the patient's admission while he remains on the MedSurg Unit at [facility] in [place], [place]. 10.Crisis plan is in place. CURT GUZMAN /[id number]
[2019-01-25] MEDS: Sertraline 50 MG Tab PO SCH (08:32)
[2019-01-25] MEDS: Lisinopril 5 MG Tab PO SCH (08:32)
[2019-01-25] MEDS: carBAMazepine 200 MG Tab PO SCH ×2 (08:33→21:16)
[2019-01-25] MEDS: Metoprolol Tartrate 25 MG Tab PO SCH ×2 (08:33→21:17)
[2019-01-25] MEDS ORDERED: methylPREDNISolone Sodium Succinate 1,000 MG/8 ML SDV IV SCH (12:00)
[2019-01-25] MEDS ORDERED: Magnesium Sulfate/Water 2 GM in Premix Bag 1 BAG IV ONE ×2 (12:50→15:21)
[2019-01-25] MEDS: Potassium Chloride 20 MEQ Tab.ER PO SCH ×2 (12:58→16:42)
[2019-01-25] MEDS ORDERED: Warfarin 2 MG Tab PO SCH (14:00)
--- NOTE | 2019-01-25 15:54 | PCM.PN ---
<Jakub Coates M - Last Filed: 01/25/19 16:10> - General Info Date of Service: 01/25/19 Subjective Update: Patient is a 63-year-old male, currently on day 3 of hospitalization, who was admitted for weakness and suicidal ideation. Patient has a past medical history of brain mass, atrial fibrillation and CAD s/p CABG. 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 Patient evaluated by psychiatry through teleconference yesterday and recommended in-patient psychiatric admission once medically stabilized. Overnight, as per nurse, patient was very agitated and required ativan and benadryl. At bedside this AM, patient appeared to be very drowsy and his speech was not completely comprehensible as a result. He denied having any pain, nausea or vomiting. Patient did state repeatedly that he is upset and mentioned that his had left him. - Patient Data Vitals - Most Recent: Last Vital Signs Temp 97.0 F 01/25/19 12:00 Pulse 72 01/25/19 08:33 Resp 17 01/25/19 12:00 BP 134/75 01/25/19 12:00 Pulse Ox 97 01/25/19 12:00 Weight - Most Recent: 91 kg I&O - Last 24 Hours: Intake & Output 01/25/19 01/25/19 01/25/19 06:59 14:59 22:59 Intake Total 2750 250 Output Total 475 Balance 2275 250 Lab Results Last 24 Hours: Laboratory Results - last 24 hr 01/25/19 01/25/19 01/25/19 Range/Units 06:08 06:08 06:08 WBC 7.16 (4.0-11.0) K/uL RBC 4.82 (4.50-5.90) M/uL Hgb 12.5 L (13.0-17.0) g/dL Hct 36.4 L (38.0-50.0) % MCV 75.5 L (80.0-98.0) fL MCH 25.9 L (27.0-32.0) pg MCHC 34.3 (31.0-37.0) g/dL RDW Std Deviation 41.3 (28.0-62.0) fl RDW Coeff of Vicki 15 (11.0-15.0) % Plt Count 139 L (150-400) K/uL MPV 8.70 (7.40-12.00) fL Add Manual Diff YES Neutrophils % (Manual) 61 (48.0-80.0) % Band Neutrophils % 6 % Lymphocytes % (Manual) 24 (16.0-40.0) % Monocytes % (Manual) 7 (0.0-15.0) % Eosinophils % (Manual) 1 (0.0-7.0) % Basophils % (Manual) 1 (0.0-1.5) % Nucleated RBC % 0.0 /100WBC Absolute Seg Neuts 4.4 (1.4-5.7) Band Neutrophils # 0.4 Lymphocytes # (Manual) 1.7 (0.6-2.4) Monocytes # (Manual) 0.5 (0.0-0.8) Eosinophils # (Manual) 0.1 (0.0-0.7) Basophils # (Manual) 0.1 (0.0-0.1) Nucleated RBCs # 0 K/uL INR 1.48 Sodium 141 (136-148) mmol/L Potassium 3.1 L (3.5-5.1) mmol/L Chloride 111 H (98-107) mmol/L Carbon Dioxide 19.5 L (21.0-32.0) mmol/L BUN 5 L (7.0-18.0) mg/dL Creatinine 0.8 (0.8-1.3) mg/dL Est Cr Clr Drug Dosing 100.12 mL/min Estimated GFR (MDRD) > 60.0 ml/min Glucose 93 (74-106) mg/dL Calcium 7.5 L (8.5-10.1) mg/dL Magnesium (1.8-2.4) mg/dL 01/25/19 Range/Units 06:08 WBC (4.0-11.0) K/uL RBC (4.50-5.90) M/uL Hgb (13.0-17.0) g/dL Hct (38.0-50.0) % MCV (80.0-98.0) fL MCH (27.0-32.0) pg MCHC (31.0-37.0) g/dL RDW Std Deviation (28.0-62.0) fl RDW Coeff of Vicki (11.0-15.0) % Plt Count (150-400) K/uL MPV (7.40-12.00) fL Add Manual Diff Neutrophils % (Manual) (48.0-80.0) % Band Neutrophils % % Lymphocytes % (Manual) (16.0-40.0) % Monocytes % (Manual) (0.0-15.0) % Eosinophils % (Manual) (0.0-7.0) % Basophils % (Manual) (0.0-1.5) % Nucleated RBC % /100WBC Absolute Seg Neuts (1.4-5.7) Band Neutrophils # Lymphocytes # (Manual) (0.6-2.4) Monocytes # (Manual) (0.0-0.8) Eosinophils # (Manual) (0.0-0.7) Basophils # (Manual) (0.0-0.1) Nucleated RBCs # K/uL INR Sodium (136-148) mmol/L Potassium (3.5-5.1) mmol/L Chloride (98-107) mmol/L Carbon Dioxide (21.0-32.0) mmol/L BUN (7.0-18.0) mg/dL Creatinine (0.8-1.3) mg/dL Est Cr Clr Drug Dosing mL/min Estimated GFR (MDRD) ml/min Glucose (74-106) mg/dL Calcium (8.5-10.1) mg/dL Magnesium 1.6 L (1.8-2.4) mg/dL [place]ton Results Last 24 Hours: Microbiology 01/24/19 08:00 Campylobacter Antigen Assay - Final Stool / Feces NEGATIVE CAMPYLOBACTER AG REFERENCE RANGE: NEGATIVE Shiga Toxin I - Final NEGATIVE FOR SHIGA TOXIN 1 REFERENCE RANGE: NEGATIVE Shiga Toxin II - Final NEGATIVE FOR SHIGA TOXIN 2 REFERENCE RANGE: NEGATIVE 01/24/19 08:00 Clostridium difficile Toxin A & B - Final Stool / Feces Negative for C.Diff Toxin/AG REFERENCE RANGE: NEGATIVE 01/24/19 08:00 Stool for WBCs - Final Stool / Feces NEGATIVE FOR WBC'S Med Orders - Current: Current Medications Acetaminophen (Tylenol) 650 mg PO Q4H PRN PRN Reason: Pain (Mild 1-3)/fever Atorvastatin Calcium (Lipitor) 20 mg PO BEDTIME JUAN Last Admin: 01/24/19 20:13 Dose: 20 mg Carbamazepine (Tegretol Tab) 200 mg PO BID [facility] Last Admin: 01/25/19 08:33 Dose: 200 mg Methylprednisolone Sodium Succinate 250 mg/ Sodium Chloride 102 mls @ 204 mls/ hr IV Q6H [facility] Last Admin: 01/25/19 12:59 Dose: 204 mls/hr Magnesium Sulfate 2 gm/ Premix 50 mls @ 25 mls/hr IV ONETIME ONE Stop: 01/25/19 17:20 Lisinopril (Prinivil) 2.5 mg PO DAILY [facility] Last Admin: 01/25/19 08:32 Dose: 2.5 mg Lorazepam (Ativan) 1 mg PO Q6H PRN PRN Reason: Agitation Last Admin: 01/23/19 20:45 Dose: 1 mg Metoprolol Tartrate (Lopressor) 25 mg PO BID [facility] Last Admin: 01/25/19 08:33 Dose: 25 mg Oxycodone HCl (Oxycodone) 5 mg PO Q4H PRN PRN Reason: Pain (moderate 4-6) Potassium Chloride (Klor-Con M20) 40 meq PO Q4H [facility] Stop: 01/25/19 16:01 Last Admin: 01/25/19 12:58 Dose: 40 meq Sertraline HCl (Zoloft) 50 mg PO DAILY [facility] Last Admin: 01/25/19 08:32 Dose: 50 mg Temazepam (Restoril) 15 mg PO BEDTIME PRN PRN Reason: Sleep Warfarin Sodium (Coumadin) 8 mg PO MoWeFr@1400 [facility] Last Admin: 01/25/19 13:01 Dose: 8 mg Warfarin Sodium (Coumadin) 6 mg PO SuTuThSa@1400 [facility] Discontinued Medications Diphenhydramine HCl (Benadryl) 50 mg PO ONETIME ONE Stop: 01/24/19 14:30 Last Admin: 01/24/19 15:00 Dose: 50 mg Haloperidol (Haldol) 5 mg PO ONETIME ONE Stop: 01/24/19 14:29 Last Admin: 01/24/19 14:58 Dose: 5 mg Sodium Chloride (Normal Saline) 1,000 mls @ 100 mls/hr IV STAT ONE Stop: 01/23/19 20:40 Last Admin: 01/23/19 11:24 Dose: 100 mls/hr Sodium Chloride (Normal Saline) 1,000 mls @ 75 mls/hr IV ASDIRECTED [facility] Last Infusion: 01/23/19 16:32 Dose: 100 mls/hr Sodium Chloride (Normal Saline) 1,000 mls @ 100 mls/hr IV ASDIRECTED [facility] Last Admin: 01/24/19 03:53 Dose: 100 mls/hr Magnesium Sulfate 2 gm/ Premix 50 mls @ 50 mls/hr IV ONETIME ONE Stop: 01/25/19 13:49 Last Admin: 01/25/19 14:09 Dose: 50 mls/hr Lorazepam (Ativan) 2 mg PO ONETIME ONE Stop: 01/24/19 14:28 Last Admin: 01/24/19 14:59 Dose: 2 mg Non-Formulary Medication (Naltrexone Hcl) 10 mg PO DAILY JUAN Omeprazole (Omeprazole) 20 mg PO ACBREAKFAST [facility] Ondansetron HCl (Zofran) 4 mg IVPUSH ONETIME ONE Stop: 01/23/19 10:42 Last Admin: 01/23/19 11:24 Dose: 4 mg Warfarin Sodium (Coumadin) 4 mg PO DAILY@1400 [facility] Last Admin: 01/24/19 12:59 Dose: 4 mg - Exam General: Alert, Cooperative, No Acute Distress, Other (Drowsy) Lungs: Clear to Auscultation Cardiovascular: Regular Rate, Regular Rhythm GI/Abdominal Exam: Normal Bowel Sounds, Soft, Non-Tender, No Distention Psy/Mental Status: Depressed. No: Agitated - Problem List Review Problem List Initiated/Reviewed/Updated: Yes - My Orders Last 24 Hours: My Active Orders 01/25/19 15:21 Magnesium Sulfate/Water [Magnesium Sulfate in Water Premix] 2 gm Premix Bag 1 bag IV ONETIME 01/26/19 05:11 BASIC METABOLIC PANEL,BMP [CHEM] AM CBC WITH AUTO DIFF [HEME] AM MAGNESIUM [CHEM] AM - Plan Plan:: Assessment: 1. Suicidal ideation. 2. 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 3. Atrial fibrillation, on anti-coagulation. 4. Hypokalemia. 5. Hypomagnesemia. 6. PMH of CAD sp CABG, HTN, hyperlipidemia, depression, TIA and trigeminal neuralgia. Plan: 1. For suicidal ideation, patient evaluated by psychiatrist via telemedicine and recommended inpatient psychiatric treatment once medically stabilized as patient poses threat to himself and others. Psychiatry, further recommended 1:1 sitter, haldol 2-5 mg q4-6h prn agitation/psychosis, ativan 1-2 mg q4-6h prn agitation/psychosis and benadryl 50 mg q4-6h prn agitation/psychosis. The patient was uncooperative overnight with staff. In regards to inpatient psychiatric facilities, no availability for beds currently. 2. For ataxia, pending PT/OT evaluation. 3. For atrial fibrillation, patient is on coumadin. Will re-check INR's daily and adjust as necessary. 4. For hypokalemia, will replete with KCl 40 mEq PO x 2 doses today. Will re- check with AM labs. 5. For hypomagnesemia, will replete with 2 g IV magnesium sulfate and re-check magnesium level with AM labs. 6. For past medical history, will continue with home medications. <Carmelo Flower - Last Filed: 01/25/19 16:46> - General Info Admission Dx/Problem (Free Text): I have seen and examined the patient independently of Dr. Aminata MD. I have reviewed and agree with the plan of care as outlined by Dr. Coates and agree with the plan as outlined by this resident. I have discussed the case with the resident. Please see orders. - Patient Data Vitals - Most Recent: Last Vital Signs Temp 36.2 C 01/25/19 16:00 Pulse 83 01/25/19 16:00 Resp 20 01/25/19 16:00 BP 134/77 01/25/19 16:00 Pulse Ox 98 01/25/19 16:00 I&O - Last 24 Hours: Intake & Output 01/25/19 01/25/19 01/25/19 06:59 14:59 22:59 Intake Total 2750 250 1950 Output Total 475 1200 Balance 2275 250 750 Lab Results Last 24 Hours: Laboratory Results - last 24 hr 01/25/19 01/25/19 01/25/19 Range/Units 06:08 06:08 06:08 WBC 7.16 (4.0-11.0) K/uL RBC 4.82 (4.50-5.90) M/uL Hgb 12.5 L (13.0-17.0) g/dL Hct 36.4 L (38.0-50.0) % MCV 75.5 L (80.0-98.0) fL MCH 25.9 L (27.0-32.0) pg MCHC 34.3 (31.0-37.0) g/dL RDW Std Deviation 41.3 (28.0-62.0) fl RDW Coeff of Vicki 15 (11.0-15.0) % Plt Count 139 L (150-400) K/uL MPV 8.70 (7.40-12.00) fL Add Manual Diff YES Neutrophils % (Manual) 61 (48.0-80.0) % Band Neutrophils % 6 % Lymphocytes % (Manual) 24 (16.0-40.0) % Monocytes % (Manual) 7 (0.0-15.0) % Eosinophils % (Manual) 1 (0.0-7.0) % Basophils % (Manual) 1 (0.0-1.5) % Nucleated RBC % 0.0 /100WBC Absolute Seg Neuts 4.4 (1.4-5.7) Band Neutrophils # 0.4 Lymphocytes # (Manual) 1.7 (0.6-2.4) Monocytes # (Manual) 0.5 (0.0-0.8) Eosinophils # (Manual) 0.1 (0.0-0.7) Basophils # (Manual) 0.1 (0.0-0.1) Nucleated RBCs # 0 K/uL INR 1.48 Sodium 141 (136-148) mmol/L Potassium 3.1 L (3.5-5.1) mmol/L Chloride 111 H (98-107) mmol/L Carbon Dioxide 19.5 L (21.0-32.0) mmol/L BUN 5 L (7.0-18.0) mg/dL Creatinine 0.8 (0.8-1.3) mg/dL Est Cr Clr Drug Dosing 100.12 mL/min Estimated GFR (MDRD) > 60.0 ml/min Glucose 93 (74-106) mg/dL Calcium 7.5 L (8.5-10.1) mg/dL Magnesium (1.8-2.4) mg/dL 01/25/19 Range/Units 06:08 WBC (4.0-11.0) K/uL RBC (4.50-5.90) M/uL Hgb (13.0-17.0) g/dL Hct (38.0-50.0) % MCV (80.0-98.0) fL MCH (27.0-32.0) pg MCHC (31.0-37.0) g/dL RDW Std Deviation (28.0-62.0) fl RDW Coeff of Vicki (11.0-15.0) % Plt Count (150-400) K/uL MPV (7.40-12.00) fL Add Manual Diff Neutrophils % (Manual) (48.0-80.0) % Band Neutrophils % % Lymphocytes % (Manual) (16.0-40.0) % Monocytes % (Manual) (0.0-15.0) % Eosinophils % (Manual) (0.0-7.0) % Basophils % (Manual) (0.0-1.5) % Nucleated RBC % /100WBC Absolute Seg Neuts (1.4-5.7) Band Neutrophils # Lymphocytes # (Manual) (0.6-2.4) Monocytes # (Manual) (0.0-0.8) Eosinophils # (Manual) (0.0-0.7) Basophils # (Manual) (0.0-0.1) Nucleated RBCs # K/uL INR Sodium (136-148) mmol/L Potassium (3.5-5.1) mmol/L Chloride (98-107) mmol/L Carbon Dioxide (21.0-32.0) mmol/L BUN (7.0-18.0) mg/dL Creatinine (0.8-1.3) mg/dL Est Cr Clr Drug Dosing mL/min Estimated GFR (MDRD) ml/min Glucose (74-106) mg/dL Calcium (8.5-10.1) mg/dL Magnesium 1.6 L (1.8-2.4) mg/dL [place] Results Last 24 Hours: Microbiology 01/24/19 08:00 Campylobacter Antigen Assay - Final Stool / Feces NEGATIVE CAMPYLOBACTER AG REFERENCE RANGE: NEGATIVE Shiga Toxin I - Final NEGATIVE FOR SHIGA TOXIN 1 REFERENCE RANGE: NEGATIVE Shiga Toxin II - Final NEGATIVE FOR SHIGA TOXIN 2 REFERENCE RANGE: NEGATIVE Med Orders - Current: Current Medications Acetaminophen (Tylenol) 650 mg PO Q4H PRN PRN Reason: Pain (Mild 1-3)/fever Atorvastatin Calcium (Lipitor) 20 mg PO BEDTIME [facility] Last Admin: 01/24/19 20:13 Dose: 20 mg Carbamazepine (Tegretol Tab) 200 mg PO BID [facility] Last Admin: 01/25/19 08:33 Dose: 200 mg Methylprednisolone Sodium Succinate 250 mg/ Sodium Chloride 102 mls @ 204 mls/ hr IV Q6H [facility] Last Admin: 01/25/19 12:59 Dose: 204 mls/hr Magnesium Sulfate 2 gm/ Premix 50 mls @ 25 mls/hr IV ONETIME ONE Stop: 01/25/19 17:20 Last Admin: 01/25/19 16:40 Dose: 25 mls/hr Lisinopril (Prinivil) 2.5 mg PO DAILY [facility] Last Admin: 01/25/19 08:32 Dose: 2.5 mg Lorazepam (Ativan) 1 mg PO Q6H PRN PRN Reason: Agitation Last Admin: 01/23/19 20:45 Dose: 1 mg Metoprolol Tartrate (Lopressor) 25 mg PO BID [facility] Last Admin: 01/25/19 08:33 Dose: 25 mg Oxycodone HCl (Oxycodone) 5 mg PO Q4H PRN PRN Reason: Pain (moderate 4-6) Sertraline HCl (Zoloft) 50 mg PO DAILY [facility] Last Admin: 01/25/19 08:32 Dose: 50 mg Temazepam (Restoril) 15 mg PO BEDTIME PRN PRN Reason: Sleep Warfarin Sodium (Coumadin) 8 mg PO MoWeFr@1400 [facility] Last Admin: 01/25/19 13:01 Dose: 8 mg Warfarin Sodium (Coumadin) 6 mg PO SuTuThSa@1400 [facility] Discontinued Medications Diphenhydramine HCl (Benadryl) 50 mg PO ONETIME ONE Stop: 01/24/19 14:30 Last Admin: 01/24/19 15:00 Dose: 50 mg Haloperidol (Haldol) 5 mg PO ONETIME ONE Stop: 01/24/19 14:29 Last Admin: 01/24/19 14:58 Dose: 5 mg Sodium Chloride (Normal Saline) 1,000 mls @ 100 mls/hr IV STAT ONE Stop: 01/23/19 20:40 Last Admin: 01/23/19 11:24 Dose: 100 mls/hr Sodium Chloride (Normal Saline) 1,000 mls @ 75 mls/hr IV ASDIRECTED [facility] Last Infusion: 01/23/19 16:32 Dose: 100 mls/hr Sodium Chloride (Normal Saline) 1,000 mls @ 100 mls/hr IV ASDIRECTED [facility] Last Admin: 01/24/19 03:53 Dose: 100 mls/hr Magnesium Sulfate 2 gm/ Premix 50 mls @ 50 mls/hr IV ONETIME ONE Stop: 01/25/19 13:49 Last Admin: 01/25/19 14:09 Dose: 50 mls/hr Lorazepam (Ativan) 2 mg PO ONETIME ONE Stop: 01/24/19 14:28 Last Admin: 01/24/19 14:59 Dose: 2 mg Non-Formulary Medication (Naltrexone Hcl) 10 mg PO DAILY [facility] Omeprazole (Omeprazole) 20 mg PO ACBREAKFAST [facility] Ondansetron HCl (Zofran) 4 mg IVPUSH ONETIME ONE Stop: 01/23/19 10:42 Last Admin: 01/23/19 11:24 Dose: 4 mg Potassium Chloride (Klor-Con M20) 40 meq PO Q4H [facility] Stop: 01/25/19 16:01 Last Admin: 01/25/19 16:42 Dose: 40 meq Warfarin Sodium (Coumadin) 4 mg PO DAILY@1400 [facility] Last Admin: 01/24/19 12:59 Dose: 4 mg - Problem List & Annotations (1) Encephalopathy SNOMED Code(s): 18981352 Code(s): G93.40 - ENCEPHALOPATHY, UNSPECIFIED Status: Chronic Priority: High Current Visit: Yes (2) Suicidal ideation SNOMED Code(s): 6528842 Code(s): R45.851 - SUICIDAL IDEATIONS Status: Acute Priority: High Current Visit: Yes (3) Emotional lability SNOMED Code(s): 41255515 Code(s): R45.86 - EMOTIONAL LABILITY Status: Chronic Priority: High Current Visit: Yes (4) Gait disturbance SNOMED Code(s): 60303904 Code(s): R26.9 - UNSPECIFIED ABNORMALITIES OF GAIT AND MOBILITY Status: Chronic Priority: High Current Visit: Yes (5) Frequent falls SNOMED Code(s): 666873177 Code(s): R29.6 - REPEATED FALLS Status: Chronic Priority: High Current Visit: Yes (6) History of cancer SNOMED Code(s): 389669707 Code(s): Z85.9 - PERSONAL HISTORY OF MALIGNANT NEOPLASM, UNSPECIFIED Status : Chronic Priority: Medium Current Visit: Yes - My Orders Last 24 Hours: My Active Orders 01/25/19 08:00 methylPREDNISolone Sod Succ [Solu-MEDROL] 250 mg Sodium Chloride 0.9% [Normal Saline] 100 ml IV Q6H 01/25/19 09:26 Admission Status [Patient Status] [ADT] Routine 01/25/19 14:00 Warfarin [Coumadin] 8 mg PO MoWeFr@1400 01/26/19 14:00 Warfarin [Coumadin] 6 mg PO SuTuThSa@1400
[2019-01-25] MEDS: atorvaSTATin 20 MG Tab PO SCH (21:16)
[2019-01-26] MEDS: Metoprolol Tartrate 25 MG Tab PO SCH ×2 (08:21→20:54)
[2019-01-26] MEDS: carBAMazepine 200 MG Tab PO SCH ×2 (08:22→20:54)
[2019-01-26] MEDS: Lisinopril 5 MG Tab PO SCH (08:22)
[2019-01-26] MEDS: Sertraline 50 MG Tab PO SCH (08:22)
--- NOTE | 2019-01-26 09:09 | PCM.PN ---
<Jakub Coates - Last Filed: 01/26/19 11:42> - General Info Date of Service: 01/26/19 Subjective Update: Patient is a 63-year-old male admitted for weakness and suicidal ideation. He has a past medical history of CAD sp CABG, atrial fibrillation and depression. He was diagnosed with CLIPPERS a few months ago and was started on oral prednisone in Jun 2018. Patient was evaluated by psychiatry who recommended transferring to inpatient psychiatric facility for treatment as patient poses threat to himself. Dr. 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 Patient initially refused lab draws this morning but eventually allowed it. He reports sleeping well overnight and denied any fevers, chills, nausea, vomiting of shortness of breath. - Patient Data Vitals - Most Recent: Last Vital Signs Temp 96.3 F 01/26/19 07:00 Pulse 69 01/26/19 08:21 Resp 15 01/26/19 07:00 BP 134/97 H 01/26/19 08:22 Pulse Ox 98 01/26/19 07:00 Weight - Most Recent: 91 kg I&O - Last 24 Hours: Intake & Output 01/25/19 01/26/19 01/26/19 22:59 06:59 14:59 Intake Total 2480 832 Output Total 1200 850 Balance 1280 -18 Lab Results Last 24 Hours: Laboratory Results - last 24 hr 01/25/19 01/26/19 Range/Units 06:08 07:50 INR 4.08 Magnesium 1.6 L (1.8-2.4) mg/dL [place] Results Last 24 Hours: Microbiology 01/24/19 08:00 Stool Culture - Final Stool / Feces NO SALMONELLA, SHIGELLA,OR E.COLI O157 ISOLATED Campylobacter Antigen Assay - Final NEGATIVE CAMPYLOBACTER AG REFERENCE RANGE: NEGATIVE Shiga Toxin I - Final NEGATIVE FOR SHIGA TOXIN 1 REFERENCE RANGE: NEGATIVE Shiga Toxin II - Final NEGATIVE FOR SHIGA TOXIN 2 REFERENCE RANGE: NEGATIVE Med Orders - Current: Current Medications Acetaminophen (Tylenol) 650 mg PO Q4H PRN PRN Reason: Pain (Mild 1-3)/fever Atorvastatin Calcium (Lipitor) 20 mg PO BEDTIME [facility] Last Admin: 01/25/19 21:16 Dose: 20 mg Carbamazepine (Tegretol Tab) 200 mg PO BID [facility] Last Admin: 01/26/19 08:22 Dose: 200 mg Methylprednisolone Sodium Succinate 250 mg/ Sodium Chloride 102 mls @ 204 mls/ hr IV Q6H [facility] Last Admin: 01/26/19 08:39 Dose: 204 mls/hr Lisinopril (Prinivil) 2.5 mg PO DAILY [facility] Last Admin: 01/26/19 08:22 Dose: 2.5 mg Lorazepam (Ativan) 1 mg PO Q6H PRN PRN Reason: Agitation Last Admin: 01/23/19 20:45 Dose: 1 mg Metoprolol Tartrate (Lopressor) 25 mg PO BID [facility] Last Admin: 01/26/19 08:21 Dose: 25 mg Oxycodone HCl (Oxycodone) 5 mg PO Q4H PRN PRN Reason: Pain (moderate 4-6) Sertraline HCl (Zoloft) 50 mg PO DAILY [facility] Last Admin: 01/26/19 08:22 Dose: 50 mg Temazepam (Restoril) 15 mg PO BEDTIME PRN PRN Reason: Sleep Warfarin Sodium (Coumadin) 8 mg PO MoWeFr@1400 [facility] Last Admin: 01/25/19 13:01 Dose: 8 mg Warfarin Sodium (Coumadin) 6 mg PO SuTuThSa@1400 [facility] Discontinued Medications Diphenhydramine HCl (Benadryl) 50 mg PO ONETIME ONE Stop: 01/24/19 14:30 Last Admin: 01/24/19 15:00 Dose: 50 mg Haloperidol (Haldol) 5 mg PO ONETIME ONE Stop: 01/24/19 14:29 Last Admin: 01/24/19 14:58 Dose: 5 mg Sodium Chloride (Normal Saline) 1,000 mls @ 100 mls/hr IV STAT ONE Stop: 01/23/19 20:40 Last Admin: 01/23/19 11:24 Dose: 100 mls/hr Sodium Chloride (Normal Saline) 1,000 mls @ 75 mls/hr IV ASDIRECTED [facility] Last Infusion: 01/23/19 16:32 Dose: 100 mls/hr Sodium Chloride (Normal Saline) 1,000 mls @ 100 mls/hr IV ASDIRECTED [facility] Last Admin: 01/24/19 03:53 Dose: 100 mls/hr Magnesium Sulfate 2 gm/ Premix 50 mls @ 50 mls/hr IV ONETIME ONE Stop: 01/25/19 13:49 Last Admin: 01/25/19 14:09 Dose: 50 mls/hr Magnesium Sulfate 2 gm/ Premix 50 mls @ 25 mls/hr IV ONETIME ONE Stop: 01/25/19 17:20 Last Admin: 01/25/19 16:40 Dose: 25 mls/hr Lorazepam (Ativan) 2 mg PO ONETIME ONE Stop: 01/24/19 14:28 Last Admin: 01/24/19 14:59 Dose: 2 mg Non-Formulary Medication (Naltrexone Hcl) 10 mg PO DAILY [facility] Omeprazole (Omeprazole) 20 mg PO ACBREAKFAST [facility] Ondansetron HCl (Zofran) 4 mg IVPUSH ONETIME ONE Stop: 01/23/19 10:42 Last Admin: 01/23/19 11:24 Dose: 4 mg Potassium Chloride (Klor-Con M20) 40 meq PO Q4H [facility] Stop: 01/25/19 16:01 Last Admin: 01/25/19 16:42 Dose: 40 meq Warfarin Sodium (Coumadin) 4 mg PO DAILY@1400 [facility] Last Admin: 01/24/19 12:59 Dose: 4 mg - Exam General: Alert, Oriented, No Acute Distress Lungs: Clear to Auscultation, Normal Respiratory Effort Cardiovascular: Regular Rate, Regular Rhythm GI/Abdominal Exam: Normal Bowel Sounds, Soft, Non-Tender Psy/Mental Status: Alert, Labile Mood, Other (Appears more energetic today.) - Problem List Review Problem List Initiated/Reviewed/Updated: Yes - My Orders Last 24 Hours: My Active Orders 01/26/19 07:50 CBC WITH AUTO DIFF [HEME] Routine CMP [COMPREHENSIVE METABOLIC PN,CMP] [CHEM] Routine MAGNESIUM [CHEM] Routine - Assessment Assessment:: 1. Suicidal ideation. 2. Erdheim-Hollis disease. 3. CLIPPERS. 4. Ataxia likely secondary to #3. 5. Atrial fibrillation, on anti-coagulation with supratherapeutic INR. 6. Leukocytosis likely secondary to steroids. 7. Hypokalemia, resolved. 8. Hypomagnesemia, resolved. 9. PMH of CAD sp CABG, HTN, hyperlipidemia, depression, TIA and trigeminal neuralgia. - Plan Plan:: 1. For suicidal ideation, psychiatry recommended inpatient psychiatric treatment once medically stabilized as he is a threat to himself and has access to firearms. Psychiatry further recommended 1:1 sitter, haldol 2-5 mg q4-6h prn agitation/psychosis, ativan 1-2 mg q4-6h prn agitation/psychosis and benadryl 50 mg q4-6h prn agitation/psychosis. The patient has been cooperative with staff and appears much more energetic and talkative today. Patient will need treatment of other medical conditions first before being accepted to an inpatient psychiatric facility. 2. For Erdheim-Hollis disease, as per [facility] oncologist Dr. Esequiel Rasmussen, diagnosis has been confirmed by bone marrow biopsy. Dr. Rasmussen to fax over additional information today. Patient will likely need transfer to appropriate facility for specialized treatment. 3. For CLIPPERS, patient is currently on IV solumedrol. He was started on oral prednisone as an outpatient in Jun 2018 for presumptive CLIPPERS diagnosis. 4. For ataxia, pending PT/OT evaluation. 5. For atrial fibrillation, patient is on Coumadin and INR today was 4.08. Will hold warfarin dose today and re-check INR tomorrow before resuming. 6. For leukocytosis, likely reactive to steroids. Patient has been afebrile. Will continue to monitor. 7. For past medical history, will continue with home medications. <Carmelo Flower - Last Filed: 01/26/19 18:49> - General Info Admission Dx/Problem (Free Text): I have seen and examined the patient independently of Dr. Aminata AARON. I have reviewed and agree with the plan of care as outlined by Dr. Coates and agree with the plan as outlined by this resident. I have discussed the case with the resident. Please see orders. - Patient Data Vitals - Most Recent: Last Vital Signs Temp 35.8 C 01/26/19 15:50 Pulse 76 01/26/19 15:50 Resp 22 H 01/26/19 15:50 BP 131/77 01/26/19 15:50 Pulse Ox 97 01/26/19 15:50 I&O - Last 24 Hours: Intake & Output 01/26/19 01/26/19 01/26/19 06:59 14:59 22:59 Intake Total 163 456 3552 Output Total 850 Balance -18 203 1140 Lab Results Last 24 Hours: Laboratory Results - last 24 hr 07/01/26/19 01/26/19 Range/Units 07:50 07:50 07:50 WBC 13.31 H (4.0-11.0) K/uL RBC 5.66 (4.50-5.90) M/uL Hgb 14.6 (13.0-17.0) g/dL Hct 42.5 (38.0-50.0) % MCV 75.1 L (80.0-98.0) fL MCH 25.8 L (27.0-32.0) pg MCHC 34.4 (31.0-37.0) g/dL RDW Std Deviation 40.9 (28.0-62.0) fl RDW Coeff of Vicki 15 (11.0-15.0) % Plt Count 193 (150-400) K/uL MPV 9.10 (7.40-12.00) fL Add Manual Diff YES Neutrophils % (Manual) 84 H (48.0-80.0) % Lymphocytes % (Manual) 12 L (16.0-40.0) % Monocytes % (Manual) 4 (0.0-15.0) % Nucleated RBC % 0.0 /100WBC Absolute Seg Neuts 11.2 H (1.4-5.7) Lymphocytes # (Manual) 1.6 (0.6-2.4) Monocytes # (Manual) 0.5 (0.0-0.8) Nucleated RBCs # 0 K/uL INR 4.08 Sodium 138 (136-148) mmol/L Potassium 4.4 (3.5-5.1) mmol/L Chloride 109 H (98-107) mmol/L Carbon Dioxide 14.8 L (21.0-32.0) mmol/L BUN 9 (7.0-18.0) mg/dL Creatinine 0.8 (0.8-1.3) mg/dL Est Cr Clr Drug Dosing 100.12 mL/min Estimated GFR (MDRD) > 60.0 ml/min Glucose 156 H (74-106) mg/dL Calcium 8.1 L (8.5-10.1) mg/dL Magnesium 2.3 (1.8-2.4) mg/dL Total Bilirubin 0.5 (0.2-1.0) mg/dL AST 20 (15-37) IU/L ALT 23 (14-63) IU/L Alkaline Phosphatase 123 H (46-116) U/L Total Protein 5.3 L (6.4-8.2) g/dL Albumin 2.4 L (3.4-5.0) g/dL Globulin 2.9 (2.6-4.0) g/dL Albumin/Globulin Ratio 0.8 L (0.9-1.6) [place] Results Last 24 Hours: Microbiology 01/24/19 08:00 Stool Culture - Final Stool / Feces NO SALMONELLA, SHIGELLA,OR E.COLI O157 ISOLATED Campylobacter Antigen Assay - Final NEGATIVE CAMPYLOBACTER AG REFERENCE RANGE: NEGATIVE Shiga Toxin I - Final NEGATIVE FOR SHIGA TOXIN 1 REFERENCE RANGE: NEGATIVE Shiga Toxin II - Final NEGATIVE FOR SHIGA TOXIN 2 REFERENCE RANGE: NEGATIVE Med Orders - Current: Current Medications Acetaminophen (Tylenol) 650 mg PO Q4H PRN PRN Reason: Pain (Mild 1-3)/fever Atorvastatin Calcium (Lipitor) 20 mg PO BEDTIME [facility] Last Admin: 01/25/19 21:16 Dose: 20 mg Carbamazepine (Tegretol Tab) 200 mg PO BID [facility] Last Admin: 01/26/19 08:22 Dose: 200 mg Lisinopril (Prinivil) 2.5 mg PO DAILY [facility] Last Admin: 01/26/19 08:22 Dose: 2.5 mg Lorazepam (Ativan) 1 mg PO Q6H PRN PRN Reason: Agitation Last Admin: 01/26/19 16:42 Dose: 1 mg Metoprolol Tartrate (Lopressor) 25 mg PO BID [facility] Last Admin: 01/26/19 08:21 Dose: 25 mg Oxycodone HCl (Oxycodone) 5 mg PO Q4H PRN PRN Reason: Pain (moderate 4-6) Sertraline HCl (Zoloft) 50 mg PO DAILY [facility] Last Admin: 01/26/19 08:22 Dose: 50 mg Temazepam (Restoril) 15 mg PO BEDTIME PRN PRN Reason: Sleep Discontinued Medications Diphenhydramine HCl (Benadryl) 50 mg PO ONETIME ONE Stop: 01/24/19 14:30 Last Admin: 01/24/19 15:00 Dose: 50 mg Haloperidol (Haldol) 5 mg PO ONETIME ONE Stop: 01/24/19 14:29 Last Admin: 01/24/19 14:58 Dose: 5 mg Sodium Chloride (Normal Saline) 1,000 mls @ 100 mls/hr IV STAT ONE Stop: 01/23/19 20:40 Last Admin: 01/23/19 11:24 Dose: 100 mls/hr Sodium Chloride (Normal Saline) 1,000 mls @ 75 mls/hr IV ASDIRECTED [facility] Last Infusion: 01/23/19 16:32 Dose: 100 mls/hr Sodium Chloride (Normal Saline) 1,000 mls @ 100 mls/hr IV ASDIRECTED [facility] Last Admin: 01/24/19 03:53 Dose: 100 mls/hr Methylprednisolone Sodium Succinate 250 mg/ Sodium Chloride 102 mls @ 204 mls/ hr IV Q6H [facility] Last Admin: 01/26/19 13:00 Dose: 204 mls/hr Magnesium Sulfate 2 gm/ Premix 50 mls @ 50 mls/hr IV ONETIME ONE Stop: 01/25/19 13:49 Last Admin: 01/25/19 14:09 Dose: 50 mls/hr Magnesium Sulfate 2 gm/ Premix 50 mls @ 25 mls/hr IV ONETIME ONE Stop: 01/25/19 17:20 Last Admin: 01/25/19 16:40 Dose: 25 mls/hr Lorazepam (Ativan) 2 mg PO ONETIME ONE Stop: 01/24/19 14:28 Last Admin: 01/24/19 14:59 Dose: 2 mg Non-Formulary Medication (Naltrexone Hcl) 10 mg PO DAILY [facility] Omeprazole (Omeprazole) 20 mg PO ACBREAKFAST [facility] Ondansetron HCl (Zofran) 4 mg IVPUSH ONETIME ONE Stop: 01/23/19 10:42 Last Admin: 01/23/19 11:24 Dose: 4 mg Potassium Chloride (Klor-Con M20) 40 meq PO Q4H [facility] Stop: 01/25/19 16:01 Last Admin: 01/25/19 16:42 Dose: 40 meq Warfarin Sodium (Coumadin) 4 mg PO DAILY@1400 [facility] Last Admin: 01/24/19 12:59 Dose: 4 mg Warfarin Sodium (Coumadin) 8 mg PO MoWeFr@1400 [facility] Last Admin: 01/25/19 13:01 Dose: 8 mg Warfarin Sodium (Coumadin) 6 mg PO SuTuThSa@1400 [facility] - Problem List & Annotations (1) Encephalopathy SNOMED Code(s): 13091679 Code(s): G93.40 - ENCEPHALOPATHY, UNSPECIFIED Status: Chronic Priority: High Current Visit: Yes (2) Suicidal ideation SNOMED Code(s): 7398424 Code(s): R45.851 - SUICIDAL IDEATIONS Status: Acute Priority: High Current Visit: Yes (3) Emotional lability SNOMED Code(s): 19466814 Code(s): R45.86 - EMOTIONAL LABILITY Status: Chronic Priority: High Current Visit: Yes (4) Gait disturbance SNOMED Code(s): 73342380 Code(s): R26.9 - UNSPECIFIED ABNORMALITIES OF GAIT AND MOBILITY Status: Chronic Priority: High Current Visit: Yes (5) Frequent falls SNOMED Code(s): 743073912 Code(s): R29.6 - REPEATED FALLS Status: Chronic Priority: High Current Visit: Yes (6) History of cancer SNOMED Code(s): 892584559 Code(s): Z85.9 - PERSONAL HISTORY OF MALIGNANT NEOPLASM, UNSPECIFIED Status : Chronic Priority: Medium Current Visit: Yes - My Orders Last 24 Hours: My Active Orders 01/27/19 07:32 INR,PT,PROTHROMBIN TIME [COAG] DAILY 01/28/19 07:32 INR,PT,PROTHROMBIN TIME [COAG] DAILY 01/29/19 07:32 INR,PT,PROTHROMBIN TIME [COAG] DAILY 01/30/19 07:32 INR,PT,PROTHROMBIN TIME [COAG] DAILY
[2019-01-26 09:17] LABS: BLOOD UREA NITROGEN,BUN 9 mg/dL (7.0-18.0); CARBON DIOXIDE,CO2 14.8 mmol/L (21.0-32.0); CHLORIDE,CL 109 mmol/L (98-107); GLUCOSE RANDOM 156 mg/dL (74-106); POTASSIUM,K 4.4 mmol/L (3.5-5.1); SODIUM,NA 138 mmol/L (136-148)
[2019-01-26] MEDS ORDERED: Warfarin 2 MG Tab PO SCH (14:00)
[2019-01-26] MEDS: LORazepam 1 MG Tab PO PRN (16:42)
[2019-01-26] MEDS: atorvaSTATin 20 MG Tab PO SCH (20:54)
[2019-01-27] MEDS ORDERED: Calcium Carbonate 500 MG Tab.Chew PO PRN ×2 (07:31→08:13)
[2019-01-27 07:42] VITALS: BP 130/69; PULSE 60
[2019-01-27] MEDS: Lisinopril 5 MG Tab PO SCH (08:00)
[2019-01-27] MEDS: Sertraline 50 MG Tab PO SCH (08:01)
[2019-01-27] MEDS: carBAMazepine 200 MG Tab PO SCH (08:01)
[2019-01-27] MEDS: Metoprolol Tartrate 25 MG Tab PO SCH (08:01)
[2019-01-27 08:19] LABS: BLOOD UREA NITROGEN,BUN 14 mg/dL (7.0-18.0); CARBON DIOXIDE,CO2 19.7 mmol/L (21.0-32.0); CHLORIDE,CL 111 mmol/L (98-107); GLUCOSE RANDOM 98 mg/dL (74-106); POTASSIUM,K 3.8 mmol/L (3.5-5.1); SODIUM,NA 141 mmol/L (136-148)
[2019-01-27] MEDS ORDERED: Famotidine 20 MG Tab PO SCH (09:00)
--- NOTE | 2019-01-27 11:21 | PCM.DCSUM1 ---
<Jakub Coates M - Last Filed: 01/27/19 11:44> Discharge Summary - Hospital Course Free Text/Narrative:: This patient is 63-year-old male who presented to the ED with concerns for falling and encephalopathy. He also expressed suicidal ideation as a result of his health issues and lack of family support. Patient was evaluated by psychiatrist via telemedicine and inpatient psychiatric treatment was recommended once patient is medically stabilized. Patient exhibited labile mood with suicidal ideation and has access to firearms at home. Furthermore, patient reported that he has been getting evaluated for a hematological cancer. Chart review revealed that he was being treated for presumptive CLIPPERS with steroids as an outpatient. On admission, patient placed on high-dose IV solumedrol. However, during current hospitalization, food and nutrition services assistant from [facility], Dr. 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 Dr. Jhonathan Rasmussen recommended discontinuing steroids at this time and recommended urgent hematology/oncology referral for treatment with vemurafenib. It was determined that patient needs to be transferred to another accepting facility for more specialized care. Car Sealer at [facility] in [place], Dr. Dai, was contacted who agreed for consult. Patient will also require inpatient psychiatric treatment as well for suicidal ideation. Psychiatry from [facility] recommended transferring patient to [place] [facility] where he will be evaluated to determine appropriateness for treatment on general medical floor or inpatient psychiatry admission. - Discharge Data Discharge Date: 01/27/19 Discharge Disposition: DC/Tfer to Acute Hospital 02 Condition: Fair - Patient Summary/Data Consults: Consultations 01/23/19 16:04 Consult to Physician [CONS] Routine OT Evaluation and Treatment [CONS] Routine PT Evaluation and Treatment [CONS] Routine - Discharge Plan *PRESCRIPTION DRUG MONITORING PROGRAM REVIEWED*: Not Applicable *COPY OF PRESCRIPTION DRUG MONITORING REPORT IN PATIENT MICHELLE: Not Applicable Home Medications: Home Meds Lisinopril 2.5 mg PO DAILY 01/23/19 [History] Metoprolol Tartrate 25 mg PO BID 01/23/19 [History] Nitroglycerin 0.4 mg PO ASDIRECTED PRN 01/23/19 [History] Sertraline HCl 50 mg PO DAILY 01/23/19 [History] Warfarin [Coumadin] 8 mg PO MOWEFR@2100 01/23/19 [History] atorvaSTATin [Lipitor] 20 mg PO BEDTIME 01/23/19 [History] carBAMazepine [Carbamazepine] 200 mg PO BID 01/23/19 [History] Aspirin [Halfprin] 81 mg PO DAILY 01/24/19 [History] Omeprazole 20 mg PO DAILY 01/24/19 [History] Warfarin [Coumadin] 6 mg PO SUTUTHSA@2100 01/24/19 [History] predniSONE [Prednisone] 50 mg PO DAILY 01/24/19 [History] Referrals: Db Rosario MD [Physician] - - Discharge Summary/Plan Comment DC Time >30 min.: No - Patient Data Vitals - Most Recent: Last Vital Signs Temp 97.0 F 01/27/19 07:00 Pulse 60 01/27/19 08:01 Resp 20 01/27/19 07:00 BP 130/69 01/27/19 08:01 Pulse Ox 95 01/27/19 07:00 Weight - Most Recent: 91 kg I&O - Last 24 hours: Intake & Output 01/26/19 01/27/19 01/27/19 22:59 06:59 14:59 Intake Total 1380 1100 Balance 1380 1100 Lab Results - Last 24 hrs: Laboratory Results - last 24 hr 01/27/19 01/27/19 01/27/19 Range/Units 07:40 07:40 08:17 WBC 17.01 H (4.0-11.0) K/uL RBC 5.22 (4.50-5.90) M/uL Hgb 13.4 (13.0-17.0) g/dL Hct 39.9 (38.0-50.0) % MCV 76.4 L (80.0-98.0) fL MCH 25.7 L (27.0-32.0) pg MCHC 33.6 (31.0-37.0) g/dL RDW Std Deviation 42.8 (28.0-62.0) fl RDW Coeff of Vicki 16 H (11.0-15.0) % Plt Count 188 (150-400) K/uL MPV 8.90 (7.40-12.00) fL Add Manual Diff YES Neutrophils % (Manual) 72 (48.0-80.0) % Band Neutrophils % 3 % Lymphocytes % (Manual) 13 L (16.0-40.0) % Monocytes % (Manual) 12 (0.0-15.0) % Nucleated RBC % 0.0 /100WBC Absolute Seg Neuts 12.2 H (1.4-5.7) Band Neutrophils # 0.5 Lymphocytes # (Manual) 2.2 (0.6-2.4) Monocytes # (Manual) 2.0 H (0.0-0.8) Nucleated RBCs # 0 K/uL INR 3.66 Sodium 141 (136-148) mmol/L Potassium 3.8 (3.5-5.1) mmol/L Chloride 111 H (98-107) mmol/L Carbon Dioxide 19.7 L (21.0-32.0) mmol/L BUN 14 (7.0-18.0) mg/dL Creatinine 0.9 (0.8-1.3) mg/dL Est Cr Clr Drug Dosing 89.00 mL/min Estimated GFR (MDRD) > 60.0 ml/min Glucose 98 (74-106) mg/dL Calcium 8.0 L (8.5-10.1) mg/dL Total Bilirubin 0.3 (0.2-1.0) mg/dL AST 26 (15-37) IU/L ALT 32 (14-63) IU/L Alkaline Phosphatase 121 H (46-116) U/L Total Protein 4.5 L (6.4-8.2) g/dL Albumin 2.1 L (3.4-5.0) g/dL Globulin 2.4 L (2.6-4.0) g/dL Albumin/Globulin Ratio 0.9 (0.9-1.6) SWETHA Results - Last 24 hrs: Microbiology 01/24/19 08:00 Stool Culture - Final Stool / Feces NO SALMONELLA, SHIGELLA,OR E.COLI O157 ISOLATED Campylobacter Antigen Assay - Final NEGATIVE CAMPYLOBACTER AG REFERENCE RANGE: NEGATIVE Shiga Toxin I - Final NEGATIVE FOR SHIGA TOXIN 1 REFERENCE RANGE: NEGATIVE Shiga Toxin II - Final NEGATIVE FOR SHIGA TOXIN 2 REFERENCE RANGE: NEGATIVE Med Orders - Current: Current Medications Acetaminophen (Tylenol) 650 mg PO Q4H PRN PRN Reason: Pain (Mild 1-3)/fever Atorvastatin Calcium (Lipitor) 20 mg PO BEDTIME JUAN Last Admin: 01/26/19 20:54 Dose: 20 mg Calcium Carbonate/Glycine (Tums) 1,000 mg PO Q2HR PRN PRN Reason: Indigestion Last Admin: 01/27/19 11:16 Dose: 1,000 mg Carbamazepine (Tegretol Tab) 200 mg PO BID [facility] Last Admin: 01/27/19 08:01 Dose: 200 mg Famotidine (Pepcid) 20 mg PO BID [facility] Last Admin: 01/27/19 08:00 Dose: 20 mg Lisinopril (Prinivil) 2.5 mg PO DAILY [facility] Last Admin: 01/27/19 08:00 Dose: 2.5 mg Lorazepam (Ativan) 1 mg PO Q6H PRN PRN Reason: Agitation Last Admin: 01/26/19 16:42 Dose: 1 mg Metoprolol Tartrate (Lopressor) 25 mg PO BID [facility] Last Admin: 01/27/19 08:01 Dose: 25 mg Oxycodone HCl (Oxycodone) 5 mg PO Q4H PRN PRN Reason: Pain (moderate 4-6) Sertraline HCl (Zoloft) 50 mg PO DAILY [facility] Last Admin: 01/27/19 08:01 Dose: 50 mg Temazepam (Restoril) 15 mg PO BEDTIME PRN PRN Reason: Sleep Last Admin: 01/26/19 20:54 Dose: 15 mg Discontinued Medications Calcium Carbonate/Glycine (Tums) 500 mg PO Q2HR PRN PRN Reason: Indigestion Last Admin: 01/27/19 08:00 Dose: 500 mg Diphenhydramine HCl (Benadryl) 50 mg PO ONETIME ONE Stop: 01/24/19 14:30 Last Admin: 01/24/19 15:00 Dose: 50 mg Haloperidol (Haldol) 5 mg PO ONETIME ONE Stop: 01/24/19 14:29 Last Admin: 01/24/19 14:58 Dose: 5 mg Sodium Chloride (Normal Saline) 1,000 mls @ 100 mls/hr IV STAT ONE Stop: 01/23/19 20:40 Last Admin: 01/23/19 11:24 Dose: 100 mls/hr Sodium Chloride (Normal Saline) 1,000 mls @ 75 mls/hr IV ASDIRECTED [facility] Last Infusion: 01/23/19 16:32 Dose: 100 mls/hr Sodium Chloride (Normal Saline) 1,000 mls @ 100 mls/hr IV ASDIRECTED [facility] Last Admin: 01/24/19 03:53 Dose: 100 mls/hr Methylprednisolone Sodium Succinate 250 mg/ Sodium Chloride 102 mls @ 204 mls/ hr IV Q6H [facility] Last Admin: 01/26/19 13:00 Dose: 204 mls/hr Magnesium Sulfate 2 gm/ Premix 50 mls @ 50 mls/hr IV ONETIME ONE Stop: 01/25/19 13:49 Last Admin: 01/25/19 14:09 Dose: 50 mls/hr Magnesium Sulfate 2 gm/ Premix 50 mls @ 25 mls/hr IV ONETIME ONE Stop: 01/25/19 17:20 Last Admin: 01/25/19 16:40 Dose: 25 mls/hr Lorazepam (Ativan) 2 mg PO ONETIME ONE Stop: 01/24/19 14:28 Last Admin: 01/24/19 14:59 Dose: 2 mg Non-Formulary Medication (Naltrexone Hcl) 10 mg PO DAILY [facility] Omeprazole (Omeprazole) 20 mg PO ACBREAKFAST [facility] Ondansetron HCl (Zofran) 4 mg IVPUSH ONETIME ONE Stop: 01/23/19 10:42 Last Admin: 01/23/19 11:24 Dose: 4 mg Potassium Chloride (Klor-Con M20) 40 meq PO Q4H [facility] Stop: 01/25/19 16:01 Last Admin: 01/25/19 16:42 Dose: 40 meq Warfarin Sodium (Coumadin) 4 mg PO DAILY@1400 [facility] Last Admin: 01/24/19 12:59 Dose: 4 mg Warfarin Sodium (Coumadin) 8 mg PO MoWeFr@1400 [facility] Last Admin: 01/25/19 13:01 Dose: 8 mg Warfarin Sodium (Coumadin) 6 mg PO SuTuThSa@1400 [facility] *Q Meaningful Use (DIS) - VTE *Q VTE Mechanical Contraindications *Q: At Risk for Falls VTE Pharmacological Contraindications *Q: Risk of Bleeding <Carmelo Flower - Last Filed: 01/27/19 12:14> Discharge Summary - Hospital Course HPI Initial Comments: I have seen and examined the patient independently of Dr. Aminata MD. I have reviewed and agree with the plan of care as outlined by Dr. Coates. I have discussed the case with the resident. Please see orders. - Discharge Diagnosis/Problem(s) (1) Encephalopathy SNOMED Code(s): 04245524 ICD Code: G93.40 - ENCEPHALOPATHY, UNSPECIFIED Status: Chronic Priority: High Current Visit: Yes (2) Suicidal ideation SNOMED Code(s): 8873510 ICD Code: R45.851 - SUICIDAL IDEATIONS Status: Acute Priority: High Current Visit: Yes (3) Emotional lability SNOMED Code(s): 70462426 ICD Code: R45.86 - EMOTIONAL LABILITY Status: Chronic Priority: High Current Visit: Yes (4) Gait disturbance SNOMED Code(s): 71687523 ICD Code: R26.9 - UNSPECIFIED ABNORMALITIES OF GAIT AND MOBILITY Status: Chronic Priority: High Current Visit: Yes (5) Frequent falls SNOMED Code(s): 499591443 ICD Code: R29.6 - REPEATED FALLS Status: Chronic Priority: High Current Visit: Yes (6) History of cancer SNOMED Code(s): 711230370 ICD Code: Z85.9 - PERSONAL HISTORY OF MALIGNANT NEOPLASM, UNSPECIFIED Status: Chronic Priority: Medium Current Visit: Yes - Patient Summary/Data Consults: Consultations 01/23/19 16:04 Consult to Physician [CONS] Routine OT Evaluation and Treatment [CONS] Routine PT Evaluation and Treatment [CONS] Routine - Patient Data Vitals - Most Recent: Last Vital Signs Temp 36.1 C 01/27/19 07:00 Pulse 60 01/27/19 08:01 Resp 20 01/27/19 07:00 BP 130/69 01/27/19 08:01 Pulse Ox 95 01/27/19 07:00 I&O - Last 24 hours: Intake & Output 01/26/19 01/27/19 01/27/19 22:59 06:59 14:59 Intake Total 1380 1100 Balance 1380 1100 Lab Results - Last 24 hrs: Laboratory Results - last 24 hr 01/27/19 01/27/19 01/27/19 Range/Units 07:40 07:40 08:17 WBC 17.01 H (4.0-11.0) K/uL RBC 5.22 (4.50-5.90) M/uL Hgb 13.4 (13.0-17.0) g/dL Hct 39.9 (38.0-50.0) % MCV 76.4 L (80.0-98.0) fL MCH 25.7 L (27.0-32.0) pg MCHC 33.6 (31.0-37.0) g/dL RDW Std Deviation 42.8 (28.0-62.0) fl RDW Coeff of Vicki 16 H (11.0-15.0) % Plt Count 188 (150-400) K/uL MPV 8.90 (7.40-12.00) fL Add Manual Diff YES Neutrophils % (Manual) 72 (48.0-80.0) % Band Neutrophils % 3 % Lymphocytes % (Manual) 13 L (16.0-40.0) % Monocytes % (Manual) 12 (0.0-15.0) % Nucleated RBC % 0.0 /100WBC Absolute Seg Neuts 12.2 H (1.4-5.7) Band Neutrophils # 0.5 Lymphocytes # (Manual) 2.2 (0.6-2.4) Monocytes # (Manual) 2.0 H (0.0-0.8) Nucleated RBCs # 0 K/uL INR 3.66 Sodium 141 (136-148) mmol/L Potassium 3.8 (3.5-5.1) mmol/L Chloride 111 H (98-107) mmol/L Carbon Dioxide 19.7 L (21.0-32.0) mmol/L BUN 14 (7.0-18.0) mg/dL Creatinine 0.9 (0.8-1.3) mg/dL Est Cr Clr Drug Dosing 89.00 mL/min Estimated GFR (MDRD) > 60.0 ml/min Glucose 98 (74-106) mg/dL Calcium 8.0 L (8.5-10.1) mg/dL Total Bilirubin 0.3 (0.2-1.0) mg/dL AST 26 (15-37) IU/L ALT 32 (14-63) IU/L Alkaline Phosphatase 121 H (46-116) U/L Total Protein 4.5 L (6.4-8.2) g/dL Albumin 2.1 L (3.4-5.0) g/dL Globulin 2.4 L (2.6-4.0) g/dL Albumin/Globulin Ratio 0.9 (0.9-1.6) SWETHA Results - Last 24 hrs: Microbiology 01/24/19 08:00 Stool Culture - Final Stool / Feces NO SALMONELLA, SHIGELLA,OR E.COLI O157 ISOLATED Campylobacter Antigen Assay - Final NEGATIVE CAMPYLOBACTER AG REFERENCE RANGE: NEGATIVE Shiga Toxin I - Final NEGATIVE FOR SHIGA TOXIN 1 REFERENCE RANGE: NEGATIVE Shiga Toxin II - Final NEGATIVE FOR SHIGA TOXIN 2 REFERENCE RANGE: NEGATIVE Med Orders - Current: Current Medications Acetaminophen (Tylenol) 650 mg PO Q4H PRN PRN Reason: Pain (Mild 1-3)/fever Atorvastatin Calcium (Lipitor) 20 mg PO BEDTIME [facility] Last Admin: 01/26/19 20:54 Dose: 20 mg Calcium Carbonate/Glycine (Tums) 1,000 mg PO Q2HR PRN PRN Reason: Indigestion Last Admin: 01/27/19 11:16 Dose: 1,000 mg Carbamazepine (Tegretol Tab) 200 mg PO BID [facility] Last Admin: 01/27/19 08:01 Dose: 200 mg Famotidine (Pepcid) 20 mg PO BID [facility] Last Admin: 01/27/19 08:00 Dose: 20 mg Lisinopril (Prinivil) 2.5 mg PO DAILY [facility] Last Admin: 01/27/19 08:00 Dose: 2.5 mg Lorazepam (Ativan) 1 mg PO Q6H PRN PRN Reason: Agitation Last Admin: 01/26/19 16:42 Dose: 1 mg Metoprolol Tartrate (Lopressor) 25 mg PO BID [facility] Last Admin: 01/27/19 08:01 Dose: 25 mg Oxycodone HCl (Oxycodone) 5 mg PO Q4H PRN PRN Reason: Pain (moderate 4-6) Sertraline HCl (Zoloft) 50 mg PO DAILY [facility] Last Admin: 01/27/19 08:01 Dose: 50 mg Temazepam (Restoril) 15 mg PO BEDTIME PRN PRN Reason: Sleep Last Admin: 01/26/19 20:54 Dose: 15 mg Discontinued Medications Calcium Carbonate/Glycine (Tums) 500 mg PO Q2HR PRN PRN Reason: Indigestion Last Admin: 01/27/19 08:00 Dose: 500 mg Diphenhydramine HCl (Benadryl) 50 mg PO ONETIME ONE Stop: 01/24/19 14:30 Last Admin: 01/24/19 15:00 Dose: 50 mg Haloperidol (Haldol) 5 mg PO ONETIME ONE Stop: 01/24/19 14:29 Last Admin: 01/24/19 14:58 Dose: 5 mg Sodium Chloride (Normal Saline) 1,000 mls @ 100 mls/hr IV STAT ONE Stop: 01/23/19 20:40 Last Admin: 01/23/19 11:24 Dose: 100 mls/hr Sodium Chloride (Normal Saline) 1,000 mls @ 75 mls/hr IV ASDIRECTED [facility] Last Infusion: 01/23/19 16:32 Dose: 100 mls/hr Sodium Chloride (Normal Saline) 1,000 mls @ 100 mls/hr IV ASDIRECTED [facility] Last Admin: 01/24/19 03:53 Dose: 100 mls/hr Methylprednisolone Sodium Succinate 250 mg/ Sodium Chloride 102 mls @ 204 mls/ hr IV Q6H [facility] Last Admin: 01/26/19 13:00 Dose: 204 mls/hr Magnesium Sulfate 2 gm/ Premix 50 mls @ 50 mls/hr IV ONETIME ONE Stop: 01/25/19 13:49 Last Admin: 01/25/19 14:09 Dose: 50 mls/hr Magnesium Sulfate 2 gm/ Premix 50 mls @ 25 mls/hr IV ONETIME ONE Stop: 01/25/19 17:20 Last Admin: 01/25/19 16:40 Dose: 25 mls/hr Lorazepam (Ativan) 2 mg PO ONETIME ONE Stop: 01/24/19 14:28 Last Admin: 01/24/19 14:59 Dose: 2 mg Non-Formulary Medication (Naltrexone Hcl) 10 mg PO DAILY [facility] Omeprazole (Omeprazole) 20 mg PO ACBREAKFAST [facility] Ondansetron HCl (Zofran) 4 mg IVPUSH ONETIME ONE Stop: 01/23/19 10:42 Last Admin: 01/23/19 11:24 Dose: 4 mg Potassium Chloride (Klor-Con M20) 40 meq PO Q4H JUAN Stop: 01/25/19 16:01 Last Admin: 01/25/19 16:42 Dose: 40 meq Warfarin Sodium (Coumadin) 4 mg PO DAILY@1400 [facility] Last Admin: 01/24/19 12:59 Dose: 4 mg Warfarin Sodium (Coumadin) 8 mg PO MoWeFr@1400 [facility] Last Admin: 01/25/19 13:01 Dose: 8 mg Warfarin Sodium (Coumadin) 6 mg PO Marta@1400 [facility]
== END 2019-01-27 12:30 | DRG 752 ==
LOC: MW.ED 10:38 → MW.MS 12:45 → OBSVTOIN 01-25 09:26
PROVIDERS: ADMIT Internal Medicine; ATTEND Internal Medicine
DX: R45.86 Emotional lability (principal); R45.851 Suicidal ideations; G93.40 Encephalopathy, unspecified; H91.90 Unspecified hearing loss, unspecified ear; R29.6 Repeated falls; F32.9 Major depressive disorder, single episode, unspecified; I10 Essential (primary) hypertension; W18.30XA Fall on same level, unspecified, initial encounter; I25.10 Atherosclerotic heart disease of native coronary artery without angina pectoris; I48.91 Unspecified atrial fibrillation; E88.89 Other specified metabolic disorders; R27.0 Ataxia, unspecified; E87.6 Hypokalemia; E83.42 Hypomagnesemia; G50.0 Trigeminal neuralgia; Z74.2 Need for assistance at home and no other household member able to render care; F29 Unspecified psychosis not due to a substance or known physiological condition; D72.829 Elevated white blood cell count, unspecified; T38.0X5A Adverse effect of glucocorticoids and synthetic analogues, initial encounter; E78.5 Hyperlipidemia, unspecified; Z85.89 Personal history of malignant neoplasm of other organs and systems; Z79.52 Long term (current) use of systemic steroids; Z95.1 Presence of aortocoronary bypass graft; Z87.891 Personal history of nicotine dependence; Y92.009 Unspecified place in unspecified non-institutional (private) residence as the place of occurrence of the external cause; Z79.01 Long term (current) use of anticoagulants; Z86.73 Personal history of transient ischemic attack (TIA), and cerebral infarction without residual deficits; Z79.899 Other long term (current) drug therapy; I25.2 Old myocardial infarction
CPT/HCPCS: 36415; 70450; 70450-26; 71045; 71045-26; 80048; 80053; 80305-QW; 83630; 83735; 85025; 85610; 87046; 87324; 87899; 93005; 96361; 96374; 96375; 97110-GP; 97162-GP; 97530-GP; 99285; 99285-25; A9270-GY; G0378; J2405; J2930; J3475; J7030; J7040

== ENCOUNTER 2019-12-11 18:39 | Emergency (ER) | payer BC ==
[2019-12-11] MEDS ORDERED: Sodium Chloride 0.9% 10 ML Syringe FLUSH PRN (18:42)
[2019-12-11] MEDS ORDERED: Sodium Chloride 0.9% 1,000 ML IV ONE (18:42)
[2019-12-11] MEDS ORDERED: Sodium Chloride 0.9% 2.5 ML Syringe FLUSH PRN (18:42)
--- NOTE | 2019-12-11 18:46 | EDM.PDOC ---
ED HPI GENERAL MEDICAL PROBLEM <Jean Marie Elaine - Last Filed: 12/12/19 04:34> <Gianna Acevedo - Last Filed: 12/12/19 07:30> - General Stated Complaint: LEFT HIP INJURY Time Seen by Provider: 12/11/19 18:40 - History of Present Illness INITIAL COMMENTS - FREE TEXT/NARRATIVE: History of present illness: 64-year-old male brought by EMS after fall injury, as a trauma activation. Patient was apparently lying on the ground outside in the grass for several hours after a fall. He is uncertain exactly of why he fell but thinks he lost his balance and fell backwards, as he usually uses a walker and was not using it as he was walking outside to work in the garden today. Complaint left hip pain and left forearm pain. No known loss of consciousness and denies headache. No signs of head trauma. Patient is on anticoagulation, has history of lung cancer. Does report marijuana use earlier today. Review of systems: As per history of present illness and below otherwise all systems reviewed and negative. Past medical history: As per history of present illness and as reviewed below otherwise noncontributory. Surgical history: As per history of present illness and as reviewed below otherwise noncontributory. Social history: No reported history of drug or alcohol abuse. Family history: As per history of present illness and as reviewed below otherwise noncontributory. Physical exam: GEN: no acute distress, well appearing HEENT: Atraumatic, normocephalic, mucous membranes dry Neck: supple, nontender, trachea midline. Lungs: No respiratory distress. Heart: RRR Abdomen: Soft, nondistended, nontender. Atraumatic Back: nontender Extremities: Patient in range of motion of the left hip. Hip is internally rotated and shortened/knee bent. Left forearm tenderness and ecchymosis. Neurovascularly intact. Right upper and right lower extremity unremarkable. Neuro: Awake, alert, somewhat slow to answer questions and speech appears slurred, however mucous membranes are very dry. Neuro Exam nonfocal. Skin: warm, dry, no lesions , ecchymosis as above. No lacerations. Diagnostics: [] Therapeutics: [] MDM: Impression: [] Plan: Patient signed out to Dr. Elaine at 7:15 PM, pending imaging results. Definitive disposition and diagnosis as appropriate pending reevaluation and review of above. (Gianna Acevedo) - Related Data Allergies Allergy/AdvReac Type Severity Reaction Status Date / Time No Known Allergies Allergy Verified 01/23/19 16:10 Home Meds: Home Meds Metoprolol Tartrate 25 mg PO BID 01/23/19 [History] Nitroglycerin 0.4 mg PO ASDIRECTED PRN 01/23/19 [History] Sertraline HCl 50 mg PO DAILY 01/23/19 [History] Warfarin [Coumadin] 8 mg PO MOWEFR@2100 01/23/19 [History] atorvaSTATin [Lipitor] 20 mg PO BEDTIME 01/23/19 [History] carBAMazepine [Carbamazepine] 200 mg PO BID 01/23/19 [History] lisinopriL [Lisinopril] 2.5 mg PO DAILY 01/23/19 [History] Aspirin [Halfprin] 81 mg PO DAILY 01/24/19 [History] Omeprazole 20 mg PO DAILY 01/24/19 [History] Warfarin [Coumadin] 6 mg PO SUTUTHSA@2100 01/24/19 [History] predniSONE [Prednisone] 50 mg PO DAILY 01/24/19 [History] Past Medical History - Past Health History Medical/Surgical History: Denies Medical/Surgical History HEENT History: Reports: Hard of Hearing Cardiovascular History: Reports: [place] Respiratory History: Reports: None Gastrointestinal History: Reports: None Genitourinary History: Reports: None Musculoskeletal History: Reports: Other (See Below) Other Musculoskeletal History: "broken hip" Neurological History: Reports: Other (See Below) Psychiatric History: Reports: Suicidal Ideation Endocrine/Metabolic History: Reports: None Hematologic History: Reports: Other (See Below) Other Hematologic History: "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" Immunologic History: Reports: None Other Oncologic History: 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." Dermatologic History: Reports: None - Infectious Disease History Infectious Disease History: Reports: Chicken Pox, Measles, Mumps - Past Surgical History Other Musculoskeletal Surgeries/Procedures:: "put three screws in hip" <Gianna Acevedo - Last Filed: 12/12/19 07:30> Social & Family History - Family History Family Medical History: Noncontributory - Caffeine Use Caffeine Use: Reports: Coffee, Soda - Living Situation & Occupation Living situation: Reports: , Alone Occupation: Unemployed <Gianna Acevedo - Last Filed: 12/12/19 07:30> Review of Systems - Review of Systems Review Of Systems: See Below (See dictation) <Gianna Acevedo - Last Filed: 12/12/19 07:30> ED EXAM, GENERAL - Physical Exam Exam: See Below (See dictation) <Gianna Acevedo - Last Filed: 12/12/19 07:30> Course <Jean Marie Elaine - Last Filed: 12/12/19 04:34> <Gianna Acevedo - Last Filed: 12/12/19 07:30> - Vital Signs Text/Narrative:: I accepted care of this patient at [address] Acevedo. In brief, 64- year-old male past medical history of pseudo-bulbar effect, hypertension, warfarin anticoagulation presenting with injuries after a fall. Unclear circumstances behind the fall, but was found down outside after being on the ground for several hours. Presenting with severe left hip pain, concerning for hip fracture. Imaging studies pending at time of shift change. Labs show an elevated lactate of 2.3, negative troponin, negative CK. Other labs reassuring. Given IV fluids with improvement of lactate. I obtained x- rays of the left forearm, which were unremarkable. Hip x-rays demonstrated a fracture through the left femoral neck. Patient is neurovascularly intact in the bilateral lower extremities. Given multiple doses of IV fentanyl followed by IV morphine for pain. No orthopedic surgery coverage at our hospital, so patient will need to be transferred. Spoke with the accepting emergency physician Dr. Kramer at [facility] in [place], [place] who agrees to admit. Transferred to the ground EMS crew in good condition. (Jean Marie Elaine) Last Recorded V/S: Last Vital Signs Temp 97.6 F 12/11/19 19:40 Pulse 86 12/11/19 19:40 Resp 18 12/11/19 19:40 BP 144/61 H 12/11/19 19:40 Pulse Ox 95 12/11/19 19:40 - Orders/Labs/Meds Orders: Active Orders 24 hr Category Date Time Status EKG 12 Lead [EKG Documentation Completion] [RC] STAT Care 12/11/19 19:53 Active Urinary Catheter Assessment [RC] ASDIRECTED Care 12/11/19 20:37 Active Urinary Catheter Insertion [Insert Urinary Catheter] [ Care 12/11/19 20:45 Ordered OM.PC] Q24H Saline Lock Insert [OM.PC] Stat Oth 12/11/19 18:42 Ordered Labs: Laboratory Tests 12/11/19 12/11/19 12/11/19 Range/Units 18:41 18:41 18:41 WBC 4.79 (4.0-11.0) K/uL RBC 5.40 (4.50-5.90) M/uL Hgb 13.0 (13.0-17.0) g/dL Hct 39.6 (38.0-50.0) % MCV 73.3 L (80.0-98.0) fL MCH 24.1 L (27.0-32.0) pg MCHC 32.8 (31.0-37.0) g/dL RDW Std Deviation 46.1 (28.0-62.0) fl RDW Coeff of Vicki 17 H (11.0-15.0) % Plt Count 157 (150-400) K/uL MPV 9.00 (7.40-12.00) fL Add Manual Diff YES Neutrophils % (Manual) 44 L (48.0-80.0) % Lymphocytes % (Manual) 35 (16.0-40.0) % Monocytes % (Manual) 17 H (0.0-15.0) % Eosinophils % (Manual) 2 (0.0-7.0) % Basophils % (Manual) 2 H (0.0-1.5) % Nucleated RBC % 0.0 /100WBC Absolute Seg Neuts 2.1 (1.4-5.7) Band Neutrophils # 1.7 Lymphocytes # (Manual) 1.7 (0.6-2.4) Monocytes # (Manual) 0.8 (0.0-0.8) Eosinophils # (Manual) 0.1 (0.0-0.7) Basophils # (Manual) 0.1 (0.0-0.1) Nucleated RBCs # 0 K/uL INR 1.37 APTT 36.1 H (18.6-31.3) SEC Lactate (0.20-2.00) mmol/L Sodium 142 (136-148) mmol/L Potassium 4.0 (3.5-5.1) mmol/L Chloride 107 (98-107) mmol/L Carbon Dioxide 20.6 L (21.0-32.0) mmol/L BUN 13 (7.0-18.0) mg/dL Creatinine 1.2 (0.8-1.3) mg/dL Est Cr Clr Drug Dosing TNP Estimated GFR (MDRD) > 60.0 ml/min Glucose 117 H (74-106) mg/dL Calcium 8.4 L (8.5-10.1) mg/dL Total Bilirubin 0.8 (0.2-1.0) mg/dL AST 32 (15-37) IU/L ALT 30 (14-63) IU/L Alkaline Phosphatase 116 (46-116) U/L Creatine Kinase 50 (26-308) U/L Troponin I (0.000-0.056) ng/mL Total Protein 6.8 (6.4-8.2) g/dL Albumin 3.4 (3.4-5.0) g/dL Globulin 3.4 (2.6-4.0) g/dL Albumin/Globulin Ratio 1.0 (0.9-1.6) 12/11/19 12/11/19 12/12/19 Range/Units 18:41 18:41 00:10 WBC (4.0-11.0) K/uL RBC (4.50-5.90) M/uL Hgb (13.0-17.0) g/dL Hct (38.0-50.0) % MCV (80.0-98.0) fL MCH (27.0-32.0) pg MCHC (31.0-37.0) g/dL RDW Std Deviation (28.0-62.0) fl RDW Coeff of Vicki (11.0-15.0) % Plt Count (150-400) K/uL MPV (7.40-12.00) fL Add Manual Diff Neutrophils % (Manual) (48.0-80.0) % Lymphocytes % (Manual) (16.0-40.0) % Monocytes % (Manual) (0.0-15.0) % Eosinophils % (Manual) (0.0-7.0) % Basophils % (Manual) (0.0-1.5) % Nucleated RBC % /100WBC Absolute Seg Neuts (1.4-5.7) Band Neutrophils # Lymphocytes # (Manual) (0.6-2.4) Monocytes # (Manual) (0.0-0.8) Eosinophils # (Manual) (0.0-0.7) Basophils # (Manual) (0.0-0.1) Nucleated RBCs # K/uL INR APTT (18.6-31.3) SEC Lactate 2.3 H* 1.3 (0.20-2.00) mmol/L Sodium (136-148) mmol/L Potassium (3.5-5.1) mmol/L Chloride (98-107) mmol/L Carbon Dioxide (21.0-32.0) mmol/L BUN (7.0-18.0) mg/dL Creatinine (0.8-1.3) mg/dL Est Cr Clr Drug Dosing Estimated GFR (MDRD) ml/min Glucose (74-106) mg/dL Calcium (8.5-10.1) mg/dL Total Bilirubin (0.2-1.0) mg/dL AST (15-37) IU/L ALT (14-63) IU/L Alkaline Phosphatase (46-116) U/L Creatine Kinase (26-308) U/L Troponin I < 0.050 (0.000-0.056) ng/mL Total Protein (6.4-8.2) g/dL Albumin (3.4-5.0) g/dL Globulin (2.6-4.0) g/dL Albumin/Globulin Ratio (0.9-1.6) Meds: Medications Discontinued Medications Generic Name Dose Route Start Last Admin Trade Name Heber PRN Reason Stop Dose Admin Fentanyl 50 mcg 12/11/19 19:47 12/11/19 19:59 Fentanyl IVPUSH 12/11/19 19:48 50 mcg ONETIME ONE Administration Fentanyl 50 mcg 12/11/19 21:02 12/11/19 22:08 Fentanyl IVPUSH 12/11/19 21:03 50 mcg ONETIME ONE Administration Fentanyl 50 mcg 12/11/19 21:02 12/11/19 21:37 Fentanyl IVPUSH 12/11/19 21:03 Not Given ONETIME ONE Sodium Chloride 1,000 mls @ 999 mls/hr 12/11/19 18:42 12/11/19 19:37 Normal Saline IV 12/11/19 19:42 999 mls/hr .Bolus ONE Administration Lactated Ringer's 1,000 mls @ 1,000 mls/hr 12/11/19 19:45 12/11/19 20:17 Ringers, Lactated IV 12/11/19 20:44 1,000 mls/hr .BOLUS ONE Administration Morphine Sulfate 4 mg 12/11/19 23:32 12/12/19 00:35 Morphine IVPUSH 12/11/19 23:33 4 mg ONETIME ONE Administration Sodium Chloride 10 ml 12/11/19 18:42 Saline Flush FLUSH ASDIRECTED PRN Keep Vein Open Sodium Chloride 2.5 ml 12/11/19 18:42 Saline Flush FLUSH ASDIRECTED PRN Keep Vein Open Departure - Departure Time of Disposition: 20:38 <Jean Marie Elaine - Last Filed: 12/12/19 04:34> <Gianna Acevedo - Last Filed: 12/12/19 07:30> - Departure Disposition: DC/Tfer to [facility] 02 Clinical Impression: Fracture of left hip Qualifiers: Encounter type: initial encounter Fracture type: closed Qualified Code(s): S72.002A - Fracture of unspecified part of neck of left femur, initial encounter for closed fracture - Discharge Information Referrals: Db Rosario MD [Primary Care Provider] - Forms: ED Department Discharge - Focused Exam Vital Signs: Vital Signs Temp Pulse Resp BP Pulse Ox 12/11/19 19:40 97.6 F 86 18 144/61 H 95 - My Orders Last 24 Hours: My Active Orders 12/11/19 18:42 Saline Lock Insert [OM.PC] Stat - Assessment/Plan Last 24 Hours: My Active Orders 12/11/19 18:42 Saline Lock Insert [OM.PC] Stat
[2019-12-11 19:12] LABS: BLOOD UREA NITROGEN,BUN 13 mg/dL (7.0-18.0); CARBON DIOXIDE,CO2 20.6 mmol/L (21.0-32.0); CHLORIDE,CL 107 mmol/L (98-107); GLUCOSE RANDOM 117 mg/dL (74-106); SODIUM,NA 142 mmol/L (136-148)
--- NOTE | 2019-12-11 19:37 | CT ---
INDICATION: Trauma TECHNIQUE: Head CT without contrast. COMPARISON: January 23, 2019 FINDINGS: CSF spaces: Within normal limits for age. Brain parenchyma: There are nonspecific low attenuation white matter changes consistent with chronic microvascular disease. No sign of mass, hemorrhage, or midline shift. Skull base and calvarium: The visualized paranasal sinuses and mastoid air cells demonstrate no acute or significant findings. The visualized orbits are grossly unremarkable. No skull fractures. IMPRESSION: 1. No acute findings. 2. Nonspecific white matter disease, typical of chronic microvascular disease. Please note that all CT scans at this facility use dose modulation, iterative reconstruction, and/or weight-based dosing when appropriate to reduce radiation dose to as low as reasonably achievable. Dictated by Aruna Quintanilla MD @ Dec 11 2019 7:35PM Signed by Dr. Aruna Quintanilla @ Dec 11 2019 7:35PM
--- NOTE | 2019-12-11 19:43 | CT ---
INDICATION: Trauma TECHNIQUE: CT cervical spine without contrast. COMPARISON: None FINDINGS: Vertebrae: Alignment is normal. There are no fractures or suspicious bony lesions. Discs and facet joints: Disc spaces and facets are within normal limits. Extraspinal findings: Prevertebral soft tissues, visualized airway, and visualized lungs are unremarkable. IMPRESSION: Unremarkable cervical spine CT. Please note that all CT scans at this facility use dose modulation, iterative reconstruction, and/or weight-based dosing when appropriate to reduce radiation dose to as low as reasonably achievable. Dictated by Abel Solano MD @ Dec 11 2019 7:36PM Signed by Dr. Abel Solano @ Dec 11 2019 7:41PM
[2019-12-11] MEDS ORDERED: Lactated Ringers 1,000 ML IV ONE (19:45)
[2019-12-11] MEDS ORDERED: fentaNYL 50 MCG/ML SDV IVPUSH ONE ×3 (19:47→21:02)
[2019-12-11 20:01] VITALS: BP 144/61; PULSE 86
--- NOTE | 2019-12-11 20:07 | CR ---
INDICATION: Trauma. Fall. FINDINGS: AP view of the pelvis and AP and lateral views of the left hip were obtained. There is a fracture in the left femoral neck. There is no dislocation. There is hardware in the right hip. IMPRESSION: Left femoral neck fracture. Dictated by Chema Barrett MD @ 12/11/2019 8:06:13 PM Dictated by: Chema Barrett MD @ 12/11/2019 20:06:24 (Electronically Signed)
--- NOTE | 2019-12-11 20:10 | CR ---
INDICATION: Trauma. Fall. FINDINGS: A portable AP supine view of the chest was obtained. There are sternotomy wires. The cardiac silhouette and pulmonary vasculature are within normal limits. There is elevation of the left hemidiaphragm. The lungs are clear of acute infiltrates. IMPRESSION: No evidence of acute pulmonary disease. Dictated by Chema Barrett MD @ 12/11/2019 8:08:16 PM Dictated by: Chema Barrett MD @ 12/11/2019 20:08:23 (Electronically Signed)
--- NOTE | 2019-12-11 20:43 | CR ---
Indication: Injury and pain Technique: Left forearm 2 views Comparison: None Findings: Bones: Alignment is normal. No fractures or bone lesions. Joint spaces: Unremarkable. Soft tissues: Unremarkable. Impression: No sign of acute injury. Dictated by Abel Solano MD @ Dec 11 2019 8:38PM Signed by Dr. Abel Solano @ Dec 11 2019 8:41PM
[2019-12-11] MEDS ORDERED: Morphine 4 MG/ML Syringe IVPUSH ONE (23:32)
== END 2019-12-12 00:45 ==
LOC: MW.ED 18:39
DX: S72.002A Fracture of unspecified part of neck of left femur, initial encounter for closed fracture (principal); I25.2 Old myocardial infarction; Z79.82 Long term (current) use of aspirin; Z79.899 Other long term (current) drug therapy; W19.XXXA Unspecified fall, initial encounter
CPT/HCPCS: 36415; 70450; 71045; 72125; 73090; 73502; 80053; 82550; 83605; 84484; 85025; 85610; 85730; 93005; 96374; 96375; 96376; 99285; J2270; J3010; J7030; J7120

== ENCOUNTER 2020-07-04 10:29 | Emergency (ER) | payer BC, MEDICAID ==
[2020-07-04 10:44] VITALS: BP 133/49; PULSE 105
--- NOTE | 2020-07-04 10:52 | EDM.PDOC ---
ED HPI GENERAL MEDICAL PROBLEM - General Chief Complaint: Trauma Stated Complaint: EMS Time Seen by Provider: 07/04/20 10:32 Source of Information: Reports: Patient History Limitations: Reports: No Limitations - History of Present Illness INITIAL COMMENTS - FREE TEXT/NARRATIVE: Patient is a 65-year-old male who presents today for a fall from standing. Patient inmate from long-term 2 days ago and his ex- called to have a wellness check and when police arrived patient was on the floor and could not get up on his own. Patient is not taking care of himself not take any of his daily medication for the past few days. Patient is unsure if he hit his head yesterday. Patient also reports falling out of bed today as well and again is unsure of his head. Patient denies any hip pain back pain or neck pain. Left knee/Right hip Pain Score (Numeric/FACES): 7 - Related Data Allergies Allergy/AdvReac Type Severity Reaction Status Date / Time No Known Allergies Allergy Verified 07/04/20 10:39 Home Meds: Home Meds Metoprolol Tartrate 25 mg PO BID 01/23/19 [History] Nitroglycerin 0.4 mg PO ASDIRECTED PRN 01/23/19 [History] Sertraline HCl 50 mg PO DAILY 01/23/19 [History] Warfarin [Coumadin] 8 mg PO MOWEFR@209901/23/19 [History] atorvaSTATin [Lipitor] 20 mg PO BEDTIME 01/23/19 [History] carBAMazepine [Carbamazepine] 200 mg PO BID 01/23/19 [History] lisinopriL [Lisinopril] 2.5 mg PO DAILY 01/23/19 [History] Aspirin [Halfprin] 81 mg PO DAILY 01/24/19 [History] Omeprazole 20 mg PO DAILY 01/24/19 [History] Warfarin [Coumadin] 6 mg PO SUTUTHSA@2100 01/24/19 [History] predniSONE [Prednisone] 50 mg PO DAILY 01/24/19 [History] Past Medical History - Past Health History Medical/Surgical History: Denies Medical/Surgical History HEENT History: Reports: Hard of Hearing Cardiovascular History: Reports: CT Respiratory History: Reports: None Gastrointestinal History: Reports: None Genitourinary History: Reports: None Musculoskeletal History: Reports: Other (See Below) Other Musculoskeletal History: "broken hip" Neurological History: Reports: Other (See Below) Psychiatric History: Reports: Suicidal Ideation Endocrine/Metabolic History: Reports: None Insulin Pump Model and Asset Accountant: None Hematologic History: Reports: Other (See Below) Other Hematologic History: "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" Immunologic History: Reports: None Other Oncologic History: 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." Dermatologic History: Reports: None - Infectious Disease History Infectious Disease History: Reports: Chicken Pox, Measles, Mumps - Past Surgical History Cardiovascular Surgical History: Reports: Coronary Artery Bypass Other Musculoskeletal Surgeries/Procedures:: "put three screws in hip" Social & Family History - Family History Family Medical History: No Pertinent Family History - Tobacco Use Tobacco Use Status *Q: Unknown Ever Used Tobacco - Caffeine Use Caffeine Use: Reports: Coffee, Soda - Living Situation & Occupation Living situation: Reports: , Alone Occupation: Unemployed Review of Systems - Review of Systems Review Of Systems: See Below Constitutional: Reports: No Symptoms Eyes: Reports: No Symptoms Ears: Reports: No Symptoms Nose: Reports: No Symptoms Mouth/Throat: Reports: No Symptoms Respiratory: Reports: No Symptoms Cardiovascular: Reports: No Symptoms GI/Abdominal: Reports: No Symptoms Genitourinary: Reports: No Symptoms Musculoskeletal: Reports: No Symptoms Skin: Reports: No Symptoms Neurological: Reports: No Symptoms Psychiatric: Reports: No Symptoms ED EXAM, GENERAL - Physical Exam Exam: See Below Exam Limited By: No Limitations General Appearance: Alert, WD/WN Eye Exam: Bilateral Eye: EOMI, PERRL Head: Atraumatic, Normocephalic Neck: Non-Tender Respiratory/Chest: No Respiratory Distress, Lungs Clear, Normal Breath Sounds Cardiovascular: Normal Peripheral Pulses, Regular Rate, Rhythm GI/Abdominal: Normal Bowel Sounds, Non-Tender Extremities: Normal Range of Motion Neurological: Alert, Oriented, CN II-XII Intact Course - Vital Signs Last Recorded V/S: Last Vital Signs Temp 97.2 F 07/04/20 10:39 Pulse 105 H 07/04/20 10:39 Resp 18 07/04/20 10:39 BP 133/49 L 07/04/20 10:39 Pulse Ox 97 07/04/20 10:39 - Orders/Labs/Meds Orders: Active Orders 24 hr Category Date Time Status Guaiac [OCCULT BLOOD DIAGNOSTIC] [OP] Stat Lab 07/04/20 11:24 Ordered Labs: Laboratory Tests 07/04/20 07/04/20 07/04/20 Range/Units 10:32 10:32 10:32 WBC 3.20 L (4.0-11.0) K/uL RBC 4.19 L (4.50-5.90) M/uL Hgb 8.3 L (13.0-17.0) g/dL Hct 28.5 L (38.0-50.0) % MCV 68.0 L (80.0-98.0) fL MCH 19.8 L (27.0-32.0) pg MCHC 29.1 L (31.0-37.0) g/dL RDW Std Deviation 47.0 (28.0-62.0) fl RDW Coeff of Vicki 19 H (11.0-15.0) % Plt Count 117 L (150-400) K/uL MPV 9.60 (7.40-12.00) fL Add Manual Diff YES Neutrophils % (Manual) 40 L (48.0-80.0) % Lymphocytes % (Manual) 42 H (16.0-40.0) % Monocytes % (Manual) 16 H (0.0-15.0) % Eosinophils % (Manual) 1 (0.0-7.0) % Basophils % (Manual) 1 (0.0-1.5) % Nucleated RBC % 0.0 /100WBC Absolute Seg Neuts 1.3 L (1.4-5.7) Lymphocytes # (Manual) 1.3 (0.6-2.4) Monocytes # (Manual) 0.5 (0.0-0.8) Eosinophils # (Manual) 0.0 (0.0-0.7) Basophils # (Manual) 0.0 (0.0-0.1) Nucleated RBCs # 0 K/uL Platelet Estimate Poikilocytosis 2+ MODERATE Elliptocytes 2+ MODERATE INR 1.35 APTT 28.6 (18.6-31.3) SEC Sodium 142 (136-148) mmol/L Potassium 4.5 (3.5-5.1) mmol/L Chloride 106 (98-107) mmol/L Carbon Dioxide 23.1 (21.0-32.0) mmol/L BUN 15 (7.0-18.0) mg/dL Creatinine 1.1 (0.8-1.3) mg/dL Est Cr Clr Drug Dosing 66.50 mL/min Estimated GFR (MDRD) > 60.0 ml/min Glucose 114 H (74-106) mg/dL Calcium 8.8 (8.5-10.1) mg/dL Total Bilirubin 2.2 H (0.2-1.0) mg/dL AST 15 (15-37) IU/L ALT 16 (14-63) IU/L Alkaline Phosphatase 108 (46-116) U/L Total Protein 7.1 (6.4-8.2) g/dL Albumin 3.8 (3.4-5.0) g/dL Globulin 3.3 (2.6-4.0) g/dL Albumin/Globulin Ratio 1.2 (0.9-1.6) - Re-Assessments/Exams Free Text/Narrative Re-Assessment/Exam: 07/04/20 12:[address] C-spine is negative in c-collar removed. Patient does have some inflammatory changes mastoid no tenderness back there. Patient had a drop in his hemoglobin as well today 0.3 we try to order a guaiac and will work-up for this bleeding but patient is refusing and becoming very aggressive. product support manager is here knows patient well and patient is competent to make his own decision he refused all care. Even though patient is well-built wheelchair- bound he does not want to be admitted for placement or go back to long-term. We informed patient that he will do fine is only home if he cannot walk this may be difficult patient is still does not care and is insisting to be dis charged. product support manager was able to get Adult Protective Services to meet patient at their house so he did will have some help when he gets there. Patient fully understands was able to verbalize and repeat everything we talked about today and understands the risk that he may have some internal bleeding and to possibly from this. Departure - Departure Time of Disposition: 12:07 Disposition: Against Medical Advice 07 Condition: Good Clinical Impression: Head injury - Discharge Information *PRESCRIPTION DRUG MONITORING PROGRAM REVIEWED*: Not Applicable *COPY OF PRESCRIPTION DRUG MONITORING REPORT IN PATIENT MICHELLE: Not Applicable Referrals: PCP,None [Primary Care Provider] - Forms: ED Department Discharge, Refusal of Care AMA Additional Instructions: The patient is clinically not intoxicated, free from distracting pain, appears to have intact insight, judgment and reason and in my medical opinion has the capacity to make decisions. The patient is also not under any duress to leave the hospital. In this scenario, it would be battery to subject a patient to treatment against his/her will. I have voiced my concerns for the patient's health given that a full evaluation and treatment had not occurred. I have discussed the need for continued evaluation to determine if their symptoms are caused by a condition that present risk of or morbidity. Risks including but not limited to , permanent disability, prolonged hospitalization, prolonged illness, were discussed. I tried offering alternative options in hopes that the patient might be amenable to partial evaluation and treatment which would be medically beneficial to the patient, though the patient declined my options and insisted on leaving. Because I have been unable to convince the patient to stay, I answered all of their questions about their condition and asked them to return to the ED as soon as possible to complete their evaluation, especially if their symptoms worsen or do not improve. I emphasized that leaving against medical advice does not preclude returning here for further evaluation. I asked the patient to return if they change their mind about the further evaluation and treatment. I strongly encouraged the patient to return to this Emergency Department or any Emergency Department at any time, particularly with worsening symptoms. Sepsis Event Note (ED) - Evaluation Sepsis Screening Result: No Definite Risk - Focused Exam Vital Signs: Vital Signs Temp Pulse Resp BP Pulse Ox 07/04/20 10:39 97.2 F 105 H 18 133/49 L 97 - My Orders Last 24 Hours: My Active Orders 07/04/20 11:24 Guaiac [OCCULT BLOOD DIAGNOSTIC] [OP] Stat - Assessment/Plan Last 24 Hours: My Active Orders 07/04/20 11:24 Guaiac [OCCULT BLOOD DIAGNOSTIC] [OP] Stat Assessment:: Patient is a 65-year-old male who presents today for follow-up of standing. Patient also AMA from long-term does not take care of his himself since he been at home. Will obtain CT labs and possibly needs admission for placement.
[2020-07-04 11:18] LABS: BLOOD UREA NITROGEN,BUN 15 mg/dL (7.0-18.0); CARBON DIOXIDE,CO2 23.1 mmol/L (21.0-32.0); CHLORIDE,CL 106 mmol/L (98-107); GLUCOSE RANDOM 114 mg/dL (74-106); POTASSIUM,K 4.5 mmol/L (3.5-5.1); SODIUM,NA 142 mmol/L (136-148)
--- NOTE | 2020-07-04 11:27 | CT ---
INDICATION: Trauma COMPARISON: December 11, 2019 TECHNIQUE: CT examination of the head was performed as axial sections without intravenous contrast. Images were obtained from the vertex of the skull through the skull base. Please note that all CT scans at this facility use dose modulation, iterative reconstruction, and/or weight-based dosing when appropriate to reduce radiation dose to as low as reasonably achievable. FINDINGS: The brain shows no sign of mass lesion, mass effect, hemorrhage, or edema. There are involutional changes. There is mild cortical atrophy and there is mild white matter disease. There is no hydrocephalus. The visualized portions of the orbits are normal in appearance. The osseous structures are normal in appearance with no sign of abnormality in the skull base or calvarium. There is fluid within the mastoids bilaterally without bone destruction. This is usually inflammatory. I see no skullbase fracture. IMPRESSION: Involutional changes. No acute intracranial posttraumatic findings. Fluid in both mastoids probably inflammatory. Please note that all CT scans at this facility use dose modulation, iterative reconstruction, and/or weight-based dosing when appropriate to reduce radiation dose to as low as reasonably achievable. Dictated by Darian Shannon MD @ Jul 04 2020 11:23AM Signed by Dr. Darian Shannon @ Jul 04 2020 11:26AM
--- NOTE | 2020-07-04 11:31 | CT ---
INDICATION: Fall COMPARISON: December 11, 2019 TECHNIQUE: CT examination of the cervical spine is performed without contrast using spiral technique. Thin axial, sagittal and coronal reconstructions were made. Please note that all CT scans at this facility use dose modulation, iterative reconstruction, and/or weight-based dosing when appropriate to reduce radiation dose to as low as reasonably achievable. FINDINGS: : Bone mineral density is decreased. There is no lytic or blastic lesion, fracture or dislocation identified. Moderate degenerative changes are noted diffusely. There is fluid within the mastoids probably inflammatory. No bone destruction or visible skull base fracture. There are atherosclerotic vascular calcifications. Biapical lung findings are likely related to atelectasis or scarring. IMPRESSION: No visible acute post-traumatic findings. Please note that all CT scans at this facility use dose modulation, iterative reconstruction, and/or weight-based dosing when appropriate to reduce radiation dose to as low as reasonably achievable. Dictated by Darian Shannon MD @ Jul 04 2020 11:26AM Signed by Dr. Darian Shannon @ Jul 04 2020 11:30AM
== END 2020-07-04 12:22 | disposition left against medical advice (07) ==
LOC: MW.ED 10:29
DX: S09.90XA Unspecified injury of head, initial encounter (principal); M25.562 Pain in left knee; I25.2 Old myocardial infarction; Z79.01 Long term (current) use of anticoagulants; W06.XXXA Fall from bed, initial encounter
CPT/HCPCS: 70450; 70450-26; 72125; 72125-26; 80053; 85025; 85610; 85730; 99283; 99284-25

== ENCOUNTER 2020-07-05 11:07 | Emergency (ER) | payer BC, MEDICAID ==
[2020-07-05] MEDS ORDERED: Haloperidol Lactate 5 MG/ML SDV ONE (11:17)
[2020-07-05] MEDS ORDERED: LORazepam 2 MG/ML SDV ONE (11:17)
[2020-07-05] MEDS ORDERED: Haloperidol Lactate 5 MG/ML SDV IM ONE ×2 (11:29→21:49)
[2020-07-05] MEDS ORDERED: LORazepam 2 MG/ML SDV IM ONE (11:30)
--- NOTE | 2020-07-05 11:34 | EDM.PDOC ---
ED HPI GENERAL MEDICAL PROBLEM - General Chief Complaint: Trauma Stated Complaint: EMS ARRIVAL Time Seen by Provider: 07/05/20 11:20 Source of Information: Reports: Patient History Limitations: Reports: Combative/Threatening - History of Present Illness INITIAL COMMENTS - FREE TEXT/NARRATIVE: Patient is a 65-year-old male who was brought in by EMS after suffering a fall. Patient was seen here yesterday at the fall from his wheelchair and had imaging done. Patient AMA from a detention has been living at home by himself without any furniture. Patient was to be readmitted but refused. Patient was deemed competent yesterday to make his own decisions and refused and understand risks of leaving. Patient had a low hemoglobin that day as well but refused to have any rectal exams or work-up done for that yesterday. Patient presented today because a adult services came by as outpatient he endorsed that thoughts of killing himself. Here patient denies but he says that he states that his legal to kill himself [place] he wanted to. He told the forensic social worker that he would not admit to kill himself because he has a plan does not want anyone to interfere with the plan. Patient is uncooperative does not have any medical complaints today. - Related Data Allergies Allergy/AdvReac Type Severity Reaction Status Date / Time No Known Allergies Allergy Verified 07/05/20 11:53 Home Meds: Home Meds Metoprolol Tartrate 25 mg PO BID 01/23/19 [History] Nitroglycerin 0.4 mg PO ASDIRECTED PRN 01/23/19 [History] Sertraline HCl 50 mg PO DAILY 01/23/19 [History] Warfarin [Coumadin] 8 mg PO [id number]@209901/23/19 [History] atorvaSTATin [Lipitor] 20 mg PO BEDTIME 01/23/19 [History] carBAMazepine [Carbamazepine] 200 mg PO BID 01/23/19 [History] lisinopriL [Lisinopril] 2.5 mg PO DAILY 01/23/19 [History] Aspirin [Halfprin] 81 mg PO DAILY 01/24/19 [History] Omeprazole 20 mg PO DAILY 01/24/19 [History] Warfarin [Coumadin] 6 mg PO [id number]@209901/24/19 [History] predniSONE [Prednisone] 50 mg PO DAILY 01/24/19 [History] Past Medical History - Past Health History Medical/Surgical History: Denies Medical/Surgical History HEENT History: Reports: Hard of Hearing Cardiovascular History: Reports: [place] Respiratory History: Reports: None Gastrointestinal History: Reports: None Genitourinary History: Reports: None Musculoskeletal History: Reports: Other (See Below) Other Musculoskeletal History: "broken hip" Neurological History: Reports: Other (See Below) Psychiatric History: Reports: Suicidal Ideation Endocrine/Metabolic History: Reports: None Insulin Pump Model and Electrical Checkout Mechanic: None Hematologic History: Reports: Other (See Below) Other Hematologic History: "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" Immunologic History: Reports: None Other Oncologic History: 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." Dermatologic History: Reports: None - Infectious Disease History Infectious Disease History: Reports: Chicken Pox, Measles, Mumps - Past Surgical History Cardiovascular Surgical History: Reports: Coronary Artery Bypass Other Musculoskeletal Surgeries/Procedures:: "put three screws in hip" Social & Family History - Family History Family Medical History: No Pertinent Family History - Caffeine Use Caffeine Use: Reports: Coffee, Soda - Living Situation & Occupation Living situation: Reports: , Alone Occupation: Unemployed Review of Systems - Review of Systems Review Of Systems: See Below Constitutional: Reports: No Symptoms Eyes: Reports: No Symptoms Ears: Reports: No Symptoms Nose: Reports: No Symptoms Mouth/Throat: Reports: No Symptoms Respiratory: Reports: No Symptoms Cardiovascular: Reports: No Symptoms GI/Abdominal: Reports: No Symptoms Genitourinary: Reports: No Symptoms Musculoskeletal: Reports: No Symptoms Skin: Reports: No Symptoms Neurological: Reports: No Symptoms Psychiatric: Reports: Suicidal Ideation ED EXAM, GENERAL - Physical Exam Exam: See Below Exam Limited By: No Limitations General Appearance: Alert, WD/WN Eye Exam: Bilateral Eye: EOMI, PERRL Head: Atraumatic Neck: No: Non-Tender Respiratory/Chest: No Respiratory Distress, Lungs Clear Cardiovascular: Normal Peripheral Pulses, Regular Rate, Rhythm GI/Abdominal: Normal Bowel Sounds, Soft, Non-Tender Extremities: Normal Inspection, Normal Range of Motion Neurological: Alert, Oriented, Normal Cognition #1 Interpretation EKG Date: 07/05/20 Time: 11:16 Rhythm: NSR Rate (Beats/Min): 70 QRS: RBBB ST-T: Normal Course - Vital Signs Last Recorded V/S: Last Vital Signs Temp 97.7 F 07/05/20 11:30 Pulse 94 07/05/20 18:26 Resp 16 07/05/20 18:26 BP 151/68 H 07/05/20 18:26 Pulse Ox 94 L 07/05/20 18:26 - Orders/Labs/Meds Orders: Active Orders 24 hr Category Date Time Status EKG Documentation Completion [RC] STAT Care 07/05/20 11:34 Active Labs: Laboratory Tests 07/05/20 07/05/20 07/05/20 Range/Units 11:45 11:45 11:45 WBC 2.73 L (4.0-11.0) K/uL RBC 4.21 L (4.50-5.90) M/uL Hgb 8.5 L (13.0-17.0) g/dL Hct 28.9 L (38.0-50.0) % MCV 68.6 L (80.0-98.0) fL MCH 20.2 L (27.0-32.0) pg MCHC 29.4 L (31.0-37.0) g/dL RDW Std Deviation 48.2 (28.0-62.0) fl RDW Coeff of Vicki 19 H (11.0-15.0) % Plt Count 104 L (150-400) K/uL MPV 9.30 (7.40-12.00) fL Add Manual Diff YES Neutrophils % (Manual) 28 L (48.0-80.0) % Lymphocytes % (Manual) 56 H (16.0-40.0) % Monocytes % (Manual) 15 (0.0-15.0) % Basophils % (Manual) 1 (0.0-1.5) % Nucleated RBC % 0.0 /100WBC Absolute Seg Neuts 0.8 L (1.4-5.7) Lymphocytes # (Manual) 1.5 (0.6-2.4) Monocytes # (Manual) 0.4 (0.0-0.8) Basophils # (Manual) 0.0 (0.0-0.1) Nucleated RBCs # 0 K/uL Platelet Estimate DECREASED Poikilocytosis 2+ MODERATE Elliptocytes 2+ MODERATE Sodium 144 (136-148) mmol/L Potassium 3.7 (3.5-5.1) mmol/L Chloride 107 (98-107) mmol/L Carbon Dioxide 20.7 L (21.0-32.0) mmol/L BUN 13 (7.0-18.0) mg/dL Creatinine 1.2 (0.8-1.3) mg/dL Est Cr Clr Drug Dosing 63.01 mL/min Estimated GFR (MDRD) > 60.0 ml/min Glucose 115 H (74-106) mg/dL Calcium 8.4 L (8.5-10.1) mg/dL Phosphorus 3.4 (2.6-4.7) mg/dL Magnesium 2.1 (1.8-2.4) mg/dL Total Bilirubin 1.9 H (0.2-1.0) mg/dL AST 14 L (15-37) IU/L ALT 17 (14-63) IU/L Alkaline Phosphatase 95 (46-116) U/L Creatine Kinase 36 (26-308) U/L Troponin I < 0.050 (0.000-0.056) ng/mL Total Protein 7.0 (6.4-8.2) g/dL Albumin 3.7 (3.4-5.0) g/dL Globulin 3.3 (2.6-4.0) g/dL Albumin/Globulin Ratio 1.1 (0.9-1.6) Salicylates <0.2 (0-20) mg/dL Urine Opiates Screen (NEGATIVE) Ur Oxycodone Screen (NEGATIVE) Urine Methadone Screen (NEGATIVE) Acetaminophen <2.0 ug/mL Ur Barbiturates Screen (NEGATIVE) Ur Phencyclidine Scrn (NEGATIVE) Ur Amphetamine Screen (NEGATIVE) U Methamphetamines Scrn (NEGATIVE) U Benzodiazepines Scrn (NEGATIVE) U Cocaine Metab Screen (NEGATIVE) U Marijuana (THC) Screen (NEGATIVE) Ethyl Alcohol <3 mg/dL Influenza Type A RNA (NEGATIVE) Influenza Type B RNA (NEGATIVE) SARS-CoV-2 RNA (FREDY) (NEGATIVE) 07/05/20 07/05/20 Range/Units 12:32 16:25 WBC (4.0-11.0) K/uL RBC (4.50-5.90) M/uL Hgb (13.0-17.0) g/dL Hct (38.0-50.0) % MCV (80.0-98.0) fL MCH (27.0-32.0) pg MCHC (31.0-37.0) g/dL RDW Std Deviation (28.0-62.0) fl RDW Coeff of Vicki (11.0-15.0) % Plt Count (150-400) K/uL MPV (7.40-12.00) fL Add Manual Diff Neutrophils % (Manual) (48.0-80.0) % Lymphocytes % (Manual) (16.0-40.0) % Monocytes % (Manual) (0.0-15.0) % Basophils % (Manual) (0.0-1.5) % Nucleated RBC % /100WBC Absolute Seg Neuts (1.4-5.7) Lymphocytes # (Manual) (0.6-2.4) Monocytes # (Manual) (0.0-0.8) Basophils # (Manual) (0.0-0.1) Nucleated RBCs # K/uL Platelet Estimate Poikilocytosis Elliptocytes Sodium (136-148) mmol/L Potassium (3.5-5.1) mmol/L Chloride (98-107) mmol/L Carbon Dioxide (21.0-32.0) mmol/L BUN (7.0-18.0) mg/dL Creatinine (0.8-1.3) mg/dL Est Cr Clr Drug Dosing mL/min Estimated GFR (MDRD) ml/min Glucose (74-106) mg/dL Calcium (8.5-10.1) mg/dL Phosphorus (2.6-4.7) mg/dL Magnesium (1.8-2.4) mg/dL Total Bilirubin (0.2-1.0) mg/dL AST (15-37) IU/L ALT (14-63) IU/L Alkaline Phosphatase (46-116) U/L Creatine Kinase (26-308) U/L Troponin I (0.000-0.056) ng/mL Total Protein (6.4-8.2) g/dL Albumin (3.4-5.0) g/dL Globulin (2.6-4.0) g/dL Albumin/Globulin Ratio (0.9-1.6) Salicylates (0-20) mg/dL Urine Opiates Screen NEGATIVE (NEGATIVE) Ur Oxycodone Screen NEGATIVE (NEGATIVE) Urine Methadone Screen NEGATIVE (NEGATIVE) Acetaminophen ug/mL Ur Barbiturates Screen NEGATIVE (NEGATIVE) Ur Phencyclidine Scrn NEGATIVE (NEGATIVE) Ur Amphetamine Screen NEGATIVE (NEGATIVE) U Methamphetamines Scrn NEGATIVE (NEGATIVE) U Benzodiazepines Scrn NEGATIVE (NEGATIVE) U Cocaine Metab Screen NEGATIVE (NEGATIVE) U Marijuana (THC) Screen POSITIVE (NEGATIVE) Ethyl Alcohol mg/dL Influenza Type A RNA NEGATIVE (NEGATIVE) Influenza Type B RNA NEGATIVE (NEGATIVE) SARS-CoV-2 RNA (FREDY) NEGATIVE (NEGATIVE) Meds: Medications Discontinued Medications Generic Name Dose Route Start Last Admin Trade Name Freq PRN Reason Stop Dose Admin Haloperidol Lactate Confirm 07/05/20 11:17 07/05/20 11:34 Haldol Administered 07/05/20 11:18 Not Given Dose 5 mg .ROUTE .STK-MED ONE Haloperidol Lactate 5 mg 07/05/20 11:29 07/05/20 11:37 Haldol IM 07/05/20 11:30 5 mg ONETIME ONE Administration Sodium Chloride 1,000 mls @ 1,000 mls/hr 07/05/20 13:10 07/05/20 13:31 Normal Saline IV 07/05/20 14:09 1,000 mls/hr .Bolus ONE Administration Lorazepam Confirm 07/05/20 11:17 07/05/20 11:34 Ativan Administered 07/05/20 11:18 Not Given Dose 2 mg .ROUTE .STK-MED ONE Lorazepam 2 mg 07/05/20 11:30 07/05/20 11:35 Ativan IM 07/05/20 11:31 2 mg ONETIME ONE Administration - Re-Assessments/Exams Free Text/Narrative Re-Assessment/Exam: 07/05/20 13:26 HGB is slightly better than yesterday. Will get a guaiac that is negative for blood. Unclear drop in his hemoglobin. Patient also had to be completely sedated as he was aggressive would not let us get IV and laboratory work. Patient will now be transferred for psychiatric evaluation. 07/05/20 18:55 We are still pending acceptance for patient. We have because of the 2 facilities. Patient will be signed out to oncoming attending for further disposition. Departure - Departure Time of Disposition: 13:26 Disposition: DC/Tfer to Acute Hospital 02 Condition: Good Clinical Impression: Suicidal ideation - Discharge Information Forms: ED Department Discharge Critical Care Note - Critical Care Note Total Time (mins): 40 Comments: Critical Care Procedure Note Authorized and Performed by: Dr. Pickens Total critical care time: Approximately Due to a high probability of clinically significant, life threatening deterioration, the patient required my highest level of preparedness to intervene emergently and I personally spent this critical care time directly and personally managing the patient. This critical care time included obtaining a history; examining the patient; pulse oximetry; ordering and review of studies; arranging urgent treatment with development of a management plan; evaluation of patient's response to treatment; frequent reassessment; and, discussions with other providers. This critical care time was performed to assess and manage the high probability of imminent, life-threatening deterioration that could result in multi-organ failure. It was exclusive of separately billable procedures and treating other patients and teaching time. Sepsis Event Note (ED) - Focused Exam Vital Signs: Vital Signs Temp Pulse Resp BP Pulse Ox 07/05/20 18:26 94 16 151/68 H 94 L 07/05/20 17:30 93 16 95 07/05/20 16:29 93 16 138/77 95 07/05/20 15:42 82 16 134/69 98 07/05/20 14:49 84 16 141/65 H 96 07/05/20 13:31 79 18 119/67 98 07/05/20 12:31 82 16 114/64 98 07/05/20 11:59 75 16 128/62 98 07/05/20 11:30 97.7 F 74 18 155/72 H 99 07/05/20 11:08 97.7 F 73 18 158/68 H 96 - My Orders Last 24 Hours: My Active Orders 07/05/20 11:34 EKG Documentation Completion [RC] STAT - Assessment/Plan Last 24 Hours: My Active Orders 07/05/20 11:34 EKG Documentation Completion [RC] STAT Assessment:: Patient is a 65-year-old male who presents today for fall and possible suicide ideation. Patient denies any hitting his head and states that he was in his wheelchair in his could not get back off the ground. Patient denies any suicide patient here but told the test specialist that he could not admit to 1 arms up because he does not want anyone to interfere with his plan. Yesterday patient had a low hemoglobin will obtain labs EKG and reassess.
--- NOTE | 2020-07-05 12:36 | CR ---
HISTORY: Fall from standing. TECHNIQUE: Portable frontal view the chest. COMPARISON: Chest x-ray 12/11/2019. FINDINGS: Mild elevation of the left hemidiaphragm. Sternal wires. Surgical clips project over the mediastinum. No airspace consolidation. No pleural effusion or pneumothorax. Pulmonary vasculature is within normal limits. Cardiomediastinal silhouette size is within normal limits. IMPRESSION: No acute cardiopulmonary abnormality. Dictated by Rikki Betancur MD @ Jul 05 2020 12:32PM Signed by Dr. Rikki Betancur @ Jul 05 2020 12:35PM
[2020-07-05 12:37] LABS: BLOOD UREA NITROGEN,BUN 13 mg/dL (7.0-18.0); CARBON DIOXIDE,CO2 20.7 mmol/L (21.0-32.0); CHLORIDE,CL 107 mmol/L (98-107); GLUCOSE RANDOM 115 mg/dL (74-106); POTASSIUM,K 3.7 mmol/L (3.5-5.1); SODIUM,NA 144 mmol/L (136-148)
--- NOTE | 2020-07-05 12:47 | CT ---
INDICATION: Fall from standing COMPARISON: July 04, 2020 TECHNIQUE: CT examination of the head was performed as axial sections without intravenous contrast. Images were obtained from the vertex of the skull through the skull base. Please note that all CT scans at this facility use dose modulation, iterative reconstruction, and/or weight-based dosing when appropriate to reduce radiation dose to as low as reasonably achievable. FINDINGS: The brain shows no sign of mass lesion, mass effect, hemorrhage, or edema. There are involutional changes. There is mild cortical atrophy and there is mild white matter disease. There is no hydrocephalus. The visualized portions of the orbits are normal in appearance. The osseous structures are normal in appearance with no sign of abnormality in the skull base or calvarium. There is fluid within the mastoids again demonstrated without bone destruction or visible fracture. This is usually due to inflammatory disease. IMPRESSION: No visible acute posttraumatic findings. Stable involutional changes. No hemorrhage. Fluid within the mastoids again demonstrated. This is usually inflammatory. Please note that all CT scans at this facility use dose modulation, iterative reconstruction, and/or weight-based dosing when appropriate to reduce radiation dose to as low as reasonably achievable. Dictated by Darian Shannon MD @ Jul 05 2020 12:43PM Signed by Dr. Darian Shannon @ Jul 05 2020 12:45PM
[2020-07-05] MEDS ORDERED: Sodium Chloride 0.9% 1,000 ML IV ONE (13:10)
[2020-07-05 13:18] LABS: CORONAVIRUS COVID-19 NAA NEGATIVE (NEGATIVE); INFLUENZA A NAA NEGATIVE (NEGATIVE); INFLUENZA B NAA NEGATIVE (NEGATIVE)
[2020-07-05 13:50] LABS: ACETAMINOPHEN <2.0 ug/mL
[2020-07-05] MEDS ORDERED: LORazepam 2 MG/ML SDV IVPUSH ONE (21:49)
[2020-07-05] MEDS ORDERED: diphenhydrAMINE 50 MG/ML SDV IVPUSH ONE (21:49)
[2020-07-06 00:10] VITALS: BP 143/52; PULSE 88
== END 2020-07-05 22:55 ==
LOC: MW.ED 11:07
DX: R45.851 Suicidal ideations (principal); I25.2 Old myocardial infarction; I45.10 Unspecified right bundle-branch block; Z79.82 Long term (current) use of aspirin; Z79.899 Other long term (current) drug therapy; Z20.822 Contact with and (suspected) exposure to COVID-19
CPT/HCPCS: 0240U; 36415; 70450; 71045; 80053; 80143; 80179; 80305; 80307; 82550; 83735; 84100; 84484; 85025; 85610; 93005; 96372; 96374; 96375; 99285; J1200; J1630; J2060; J7030; 93010; 99291